=== PATIENT | female | born 1935 | race Caucasian/White ===

== ENCOUNTER → 2016-04-22 | Outpatient (CLI) | payer MEDICARE, BC ==
--- NOTE | 2016-04-22 15:35 | US ---
EXAMINATION TYPE: US carotid duplex BILAT DATE OF EXAM: 04/22/2016 2:21 PM COMPARISON: Prior carotid Doppler duplex 14 March 2015 CLINICAL HISTORY: HTN I27.2, h/o stroke. Stenosis, I65.29 EXAM MEASUREMENTS: RIGHT: Peak Systolic Velocity (PSV) cm/sec ----- Right CCA: 55.0 ----- Right ICA: 121.6 ----- Right ECA: 123.8 ICA/CCA ratio: 2.2 RIGHT: End Diastole cm/sec ----- Right CCA: 7.3 ----- Right ICA: 27.1 ----- Right ECA: 7.3 LEFT: Peak Systolic Velocity (PSV) cm/sec ----- Left CCA: 47.5 ----- Left ICA: 115.0 ----- Left ECA: 88.6 ICA/CCA ratio: 2.4 LEFT: End Diastole cm/sec ----- Left CCA: 11.3 ----- Left ICA: 27.1 ----- Left ECA: 88.6 VERTEBRALS (direction of flow): Right Vertebral: Antegrade Left Vertebral: Antegrade Bilateral heterogeneous plaque, increased velocities noted bilaterally within dist ICA, may be due to tortuous vessels Grayscale, color Doppler, spectral Doppler imaging performed of the carotid arteries., Carotid, carot id bulbs shows extensive atheromatous change. IMPRESSION: No hemodynamic significant stenosis of the proximal internal carotid arteries bilaterall y by Doppler criteria, and indirect measurement of carotid stenosis. Carotid CTA could be performed f or better evaluation, there is extensive atheromatous plaque as described. Cardiac arrhythmia noted incidentally.
--- NOTE | 2016-04-23 10:31 | ECHOF ---
Referral Reason:I27.2 pulm htn, I65.29 stenosis MEASUREMENTS -------- HEIGHT: 157.5 cm WEIGHT: 45.4 kg BP: RVIDd: 2.6 cm (< 3.3) IVSd: 1.0 cm (0.6 - 1.1) LVIDd: 3.3 cm (3.9 - 5.3) LVPWd: 1.5 cm (0.6 - 1.1) IVSs: 1.7 cm LVIDs: 2.1 cm LVPWs: 1.5 cm LA Diam: 4.4 cm (2.7 - 3.8) LAESV Index (A-L): 55.71 ml/m MV EXCURSION: 18.547 mm (> 18.000) MV EF SLOPE: 110 mm/s (70 - 150) EPSS: 0.2 cm MV E Mark: 0.88 m/s MV DecT: 123 ms MV A Mark: 0.34 m/s MV E/A Ratio: 2.62 AV maxP.34 mmHg AV meanP.98 mmHg RAP: 5.00 mmHg RVSP: 46.47 mmHg FINDINGS -------- Sinus rhythm. This was a technically good study. There is mild concentric left ventricular hypertrophy. Overall left ventricular systolic function is low-normal with, an EF between 50 - 55 %. The right ventricle is normal in size. LA is severely dilated >40 ml/m2 The right atrial size is normal. Moderate to severe aortic stenosis with peak/mean pressure gradient of 27.34mmHg / 13.98mmHg, the aortic valve area by continuity equation is 0.8cm. Mild mitral annular calcification present. Moderate mitral regurgitation is present. Moderate tricuspid regurgitation present. There is moderate pulmonary hypertension. The right ventricular systolic pressure, as measured by Doppler, is 46.47mmHg. There is no pulmonic regurgitation present. The aortic root size is normal. There is no pericardial effusion. CONCLUSIONS -------- 1. There is mild concentric left ventricular hypertrophy. 2. Overall left ventricular systolic function is low-normal with, an EF between 50 - 55 %. 3. LA is severely dilated >40 ml/m2 4. Moderate to severe aortic stenosis with peak/mean pressure gradient of 27.34mmHg / 13.98mmHg, the aortic valve area by continuity equation is 0.8cm. 5. Mild mitral annular calcification present. 6. Moderate mitral regurgitation is present. 7. Moderate tricuspid regurgitation present. 8. There is moderate pulmonary hypertension. 9. The right ventricular systolic pressure, as measured by Doppler, is 46.47mmHg. MICROCOMPUTER TECHNICIAN: Sadaf Connolly RDCS
== END | disposition home or self-care (01) ==
LOC: RADUSMAIN 13:50
PROVIDERS: ATTEND Internal Medicine
DX: I65.29 Occlusion and stenosis of unspecified carotid artery (principal); I27.2 Other secondary pulmonary hypertension
CPT/HCPCS: 93306; 93880

== ENCOUNTER → 2016-05-15 | Outpatient (CLI) | payer MEDICARE, BC ==
[2016-05-15 09:54] LABS: CH 32.9; CHCM 32.8; HCT 45.5 % (34.0-46.0); HDW 2.31; HGB 14.8 gm/dL (11.4-16.0); MCH 32.7 pg (25.0-35.0); MCHC 32.4 g/dL (31.0-37.0); MCV 100.8 fL (80.0-100.0); Mean Platelet Volume 7.7; RBC 4.52 m/uL (3.80-5.40); WBC 10.7 k/uL (3.8-10.6)
[2016-05-15 10:33] LABS: ALT 28 U/L (9-52); AST 47 U/L (14-36); Alkaline Phosphatase 72 U/L (38-126); Anion Gap 14 mmol/L; Blood Urea Nitrogen 16 mg/dL (7-17); Carbon Dioxide 27 mmol/L (22-30); Chloride 92 mmol/L (98-107); Glucose 114 mg/dL (74-99); Non-African American GFR(MDRD) >60 (>60 ml/min/1.73 sqM); Potassium 4.1 mmol/L (3.5-5.1); Sodium 133 mmol/L (137-145); Total Protein 7.7 g/dL (6.3-8.2)
== END | disposition home or self-care (01) ==
LOC: LABWHC1 09:16
PROVIDERS: ATTEND Internal Medicine Interventional Cardiology
DX: D35.00 Benign neoplasm of unspecified adrenal gland (principal)
CPT/HCPCS: 36415; 80053; 83880; 85027

== ENCOUNTER 2016-07-08 05:45 | Day surgery (SDC) | payer MEDICARE, BC ==
[2016-07-07 10:01] VITALS: BMI 19.2
[2016-07-08] MEDS ORDERED: ASPIRIN 325 MG TAB PO ONE (06:00)
[2016-07-08] MEDS ORDERED: ATORVASTATIN 80 MG TAB PO ONE (06:00)
[2016-07-08] MEDS ORDERED: SODIUM CHLORIDE 0.9% 1,000 ML in EMPTY BAG 1 BAG IV ONE (06:00)
[2016-07-08 06:51] LABS: Anion Gap 11 mmol/L; Blood Urea Nitrogen 14 mg/dL (7-17); Calcium 9.9 mg/dL (8.4-10.2); Carbon Dioxide 26 mmol/L (22-30); Chloride 97 mmol/L (98-107); Glucose 92 mg/dL (74-99); Non-African American GFR(MDRD) >60 (>60 ml/min/1.73 sqM); Potassium 4.1 mmol/L (3.5-5.1); Sodium 134 mmol/L (137-145)
[2016-07-08 06:55] LABS: Basophils # (A) 0.1 k/uL (0-0.2); Basophils % (A) 1 %; CH 32.4; Eosinophils # (A) 0.1 k/uL (0-0.7); Eosinophils % (A) 1 %; HCT 40.2 % (34.0-46.0); HDW 2.49; HGB 13.5 gm/dL (11.4-16.0); Luc # (Auto) 0.14; Luc % (Auto) 2; Lymphocytes % (A) 12 %; MCH 32.2 pg (25.0-35.0); MCHC 33.6 g/dL (31.0-37.0); Monocytes # (A) 0.6 k/uL (0-1.0); Monocytes % (A) 7 %; Neutrophils # (A) 6.4 k/uL (1.3-7.7); Neutrophils % (A) 77 %; RBC 4.19 m/uL (3.80-5.40); RDW 13.7 % (11.5-15.5); WBC 8.3 k/uL (3.8-10.6); WBC (Perox) 8.61
[2016-07-08] MEDS ORDERED: fentaNYL (PF) 50 MCG/ML 2 ML AMP ONE (07:05)
[2016-07-08] MEDS ORDERED: MIDAZOLAM 2 MG/2 ML VIAL ONE (07:08)
[2016-07-08] MEDS: BENZOCAINE SPRAY 100 APPLIC/CAN MUCOUS MEM ONE ×2 (07:20→07:26)
[2016-07-08] MEDS: MIDAZOLAM 2 MG/2 ML VIAL IV ONE ×2 (07:24→07:26)
[2016-07-08] MEDS ORDERED: fentaNYL (PF) 50 MCG/ML 2 ML AMP IV ONE (07:24)
[2016-07-08] MEDS ORDERED: LIDOCAINE 2% INJ 20 MG/ML (20 ML MDV) ONE (07:25)
[2016-07-08] MEDS ORDERED: VERAPAMIL 2.5 MG/ML 2 ML AMP ONE (07:26)
[2016-07-08 07:33] LABS: MCV 95.7 fL (80.0-100.0)
[2016-07-08] MEDS ORDERED: LIDOCAINE 2% INJ 20 MG/ML SQ ONE ×2 (08:14)
[2016-07-08 08:54] LABS: Site PA
[2016-07-08 08:55] LABS: Site RA
[2016-07-08 08:55] LABS: Site FA
[2016-07-08] MEDS ORDERED: IOHEXOL 350 MG/ML 100 ML BOTTLE INJ ONE (08:56)
[2016-07-08] MEDS ORDERED: RX INFO: IV CONTRAST WAS GIVEN 1 EACH MISC MISCELLANE PRN (08:57)
[2016-07-08] MEDS ORDERED: FLUTICASONE 50MCG/SPRAY NASAL 16GM EA NOSTRIL PRN (08:58)
[2016-07-08] MEDS ORDERED: SODIUM CHLORIDE 0.9% 1,000 ML IV SCH (09:00)
--- NOTE | 2016-07-08 10:17 | ECHOT ---
DATE OF SERVICE: CLINICAL INFORMATION: Evaluation of aortic valve. PROCEDURE: After explaining the procedure to patient as well as risks and complications, blood pressure, heart rate and O2 sats was monitored. She received 2 mg of Versed and 50 mcg intravenous fentanyl. After obtaining conscious moderate sedated state, The probe was introduced into the esophagus. Images were obtained. Following that, the probe was removed. There were no immediate complications. FINDINGS: Left atrial size is mildly dilated. Left atrial appendage is normal. The aortic valve is a tricuspid valve. It is severely calcified with reduced opening. By planimetry the valve area is ranging between 0.8 and 1 cm sq. Mitral annular calcification was noted. The left ventricular size and systolic function was normal. Tricuspid valve is normal. Descending thoracic aorta revealed mild atherosclerotic changes. Small pericardial effusion was noted. Contrast bubble study revealed no evidence of shunting across the interatrial septum. Doppler pulse wave obtained. Revealed moderate mitral and tricuspid regurgitation. There was inability to obtain accurate grading across the aortic valve. There was no shunting by color Doppler study. CONCLUSION: 1. Mildly dilated left atrium with normal appearance of left atrial appendage. 2. Normal left ventricular size and systolic function. 3. Severely calcified aortic valve with reduction of the opening and by planimetry measuring between 0.8 and 1 cm. 4. Mild to moderate mitral with moderate tricuspid regurgitation. 5. Mild atherosclerotic changes of the descending thoracic aorta. 6. Small pericardial effusion. 7. No evidence of significant shunting across the interatrial septum. MTDD
[2016-07-08] MEDS ORDERED: VITAMIN E (DL,TOCOPHERYL ACET) 400 UNIT CAP PO SCH (13:30)
[2016-07-08] MEDS ORDERED: CALCIUM CARB-VIT D 500MG-200UN 1 EACH TAB PO SCH (13:30)
[2016-07-08] MEDS ORDERED: ASCORBIC ACID 500 MG TAB PO SCH (15:00)
--- NOTE | 2016-07-08 18:10 | CC ---
DATE OF SERVICE: Mrs. Friedman is an 81-year-old female with known history of hypertension, chronic atrial fibrillation who presented with progressive dyspnea on exertion and evidence of progressive aortic valve stenosis with severe aortic stenosis. In view of that, recommendation made regarding cardiac catheterization. The procedure as well as the risks and complications were discussed with the patient who is in full understanding and agreement. PROCEDURE: Patient was brought to the soap slabber in fasting semisedated state achieving moderate conscious, sedated state with fentanyl and Benadryl. Using Xylocaine anesthesia and Seldinger technique, a 6 Chinese sheath was introduced in the left femoral vein and a 6 Chinese sheath in the left femoral artery. Right heart catheterization performed using Donie-Barbi catheter. Multiple pressure samples were obtained. Cardiac output by thermodilution was calculated. Following that, selective right and left coronary angiography was performed with 6 Chinese 4 bend right and left Earline. Multiple views of the right coronary artery including hemiaxial views were obtained. Following that, catheter and sheaths were removed. Hemostasis was obtained with compression of the left groin. There were no immediate complications. Patient is returned to her room in stable condition. FINDINGS: HEMODYNAMICS: Cardiac output by Bg of 2.6 liters per minute and by thermodilution 2.4 liters per minute. The right atrial saturation of 65, pulmonary saturations 64. Femoral artery saturation of 95. Pulmonary artery systolic pressure of 32 with diastolic of 13 and a mean of 20 mmHg. Right ventricular systolic pressure of 30 with an end diastolic of 40 mmHg. Right atrial V wave of 6 with a mean of 5 mm mercury. FLUOROSCOPY: There was severe calcifications involving all the coronary arteries as well as the aortic valve and the femoral artery, quite heavy. LEFT MAIN: This is a large-size vessel heavily calcified bifurcating into the left circumflex artery, left anterior descending coronary artery, left main coronary artery distally has 40 to 50% plaque. The rest of the vessel has no high-grade stenosis. LEFT ANTERIOR DESCENDING CORONARY ARTERY: This is a large-size vessel reaching toward the apex, tapers down the distal third giving rise to diagonal branch in the mid segment of moderate caliber. The left anterior descending artery is heavily calcified in the proximal segment with the area of stenosis up to 35% to 40%. Distally, has an area of 70% stenosis. The rest of the vessel has no high-grade stenosis. LEFT CIRCUMFLEX: This is a nondominant vessel, giving rise to a large obtuse marginal branch. The left circumflex is heavily calcified. The takeoff has an eccentric 70% to 80% stenosis. The obtuse marginal branch has diffuse intimal disease with area of stenosis up to 60 to 70%. The rest of the vessel has no high-grade stenosis. RIGHT CORONARY ARTERY: This is a large dominant vessel, bifurcating distally into the PDA and posterolateral segment and branches. The right coronary artery is heavily calcified in the proximal and mid segment, has area of stenosis up to 60% throughout its course without any high-grade stenosis. The femoral artery angiogram showed severe obstructive disease at the site of the insertion of the sheath with severe diffuse disease proximal and distal to it. CONCLUSION: 1. Heavily calcified coronary arteries, aortic valve and peripheral vasculature. 2. Moderate to significant distal left main disease with significant disease in the proximal left circumflex. 3. Moderate disease in the proximal left anterior descending coronary artery and diffuse disease of moderate degree in the right coronary artery. RECOMMENDATION: In view of the findings and anatomy, I have recommended to continue medical therapy at this time. The patient is a very high risk for any intervention. Those findings will be further evaluated and discussion with the patient will be made regarding the option including maximizing medical therapy and continued conservative treatment versus considering high-risk angioplasty and TAVR. Depending on her progress, further recommendation will be made.
--- NOTE | 2016-07-08 18:12 | LTR ---
July 08, 2016 RE: Jose Friedman Dear Dr. Lynch: I had the pleasure of performing cardiac catheterization on Mrs. Friedman at [facility] on the july and a full copy of procedure note will be forwarded to you. In brief, she was found to have severe heavily calcified coronaries as well as peripheral vasculature and aortic valve with significant obstructive disease involving the left circumflex and moderate disease in the LAD and the right coronary artery and her transesophageal echocardiogram was consistent with severe aortic stenosis. Mrs. Friedman is a very high risk for any intervention at this time and that will be further evaluated with the option of continued medical therapy understanding the guarded prognosis versus proceeding with high risk intervention including angioplasty and TAVR. I will keep you updated on her progress. Thank you again for allowing me to participate in her care. Please feel free to call for any questions. Sincerely, CHRISTOPHER RUFFIN MD
[2016-07-08] MEDS: amLODIPine 10 MG TAB PO SCH (18:56)
[2016-07-08] MEDS: MELOXICAM 7.5 MG TAB PO SCH ×2 (18:57→19:55)
[2016-07-08] MEDS: RALOXIFENE 60 MG TAB PO SCH (18:57)
[2016-07-08] MEDS: ATENOLOL 25 MG TAB PO SCH (18:57)
[2016-07-08] MEDS: FERROUS SULFATE 325 MG TAB PO SCH (18:57)
[2016-07-09 07:19] LABS: Anion Gap 8 mmol/L; Blood Urea Nitrogen 14 mg/dL (7-17); Calcium 8.7 mg/dL (8.4-10.2); Carbon Dioxide 27 mmol/L (22-30); Chloride 96 mmol/L (98-107); Glucose 75 mg/dL (74-99); Non-African American GFR(MDRD) >60 (>60 ml/min/1.73 sqM); Potassium 4.6 mmol/L (3.5-5.1); Sodium 131 mmol/L (137-145)
[2016-07-09 07:50] VITALS: BP 137/62; PULSE 71; RESP 18; TEMP 97.9
[2016-07-09] MEDS: MELOXICAM 7.5 MG TAB PO SCH (08:11)
[2016-07-09] MEDS: ATENOLOL 25 MG TAB PO SCH (08:11)
[2016-07-09] MEDS: amLODIPine 10 MG TAB PO SCH (08:11)
[2016-07-09] MEDS: RALOXIFENE 60 MG TAB PO SCH (08:11)
[2016-07-09] MEDS: FERROUS SULFATE 325 MG TAB PO SCH (08:12)
--- NOTE | 2016-07-09 10:05 | PN ---
Mrs. Friedman is an 81-year-old female with a history of chronic atrial fibrillation, history of aortic stenosis who presented with progressive dyspnea, was found to have progression of her aortic stenosis on her echocardiogram, underwent transesophageal echocardiogram and cardiac catheterization, was found to have severe coronary artery disease as well as severe aortic stenosis with heavily calcified coronary arteries. She is doing well this morning. She is denying any chest pain. No dizziness. No palpitation. No cough or fever. She continues to be on atenolol 25 mg daily, iron, Evista, amlodipine 10 mg daily. PHYSICAL EXAMINATION: Blood pressure 137/60 with a heart rate in 60s. LUNGS: Clear. HEART: Irregularly irregular. S1, S2, no S3, with systolic murmur, 3/6, late peaking. No diastolic murmur. No rub. ABDOMEN: Soft, nontender, positive bowel sounds. No organomegaly. EXTREMITIES: No edema. LEFT GROIN: No hematoma. Lab data revealed BUN and creatinine of 14 and 0.65. Potassium 4.6. IMPRESSION: 1. Severe aortic stenosis and severe calcified coronary arteries. 2. Chronic atrial fibrillation. 3. Hypertension. RECOMMENDATION: Patient will be discharged home today and followed as an outpatient and further recommendation will be made At that time. She will resume her routine treatment with the anticoagulation.
== END 2016-07-09 11:25 | disposition home or self-care (01) ==
LOC: CATHCVL 05:45 → 3OBS 13:06 → CATHCVL 07-09 11:25
PROVIDERS: ATTEND Internal Medicine Interventional Cardiology
DX: I25.10 Atherosclerotic heart disease of native coronary artery without angina pectoris (principal); I48.2 Chronic atrial fibrillation; I35.0 Nonrheumatic aortic (valve) stenosis; I10 Essential (primary) hypertension; I36.1 Nonrheumatic tricuspid (valve) insufficiency; I25.84 Coronary atherosclerosis due to calcified coronary lesion; J44.9 Chronic obstructive pulmonary disease, unspecified; Z86.73 Personal history of transient ischemic attack (TIA), and cerebral infarction without residual deficits; Z87.891 Personal history of nicotine dependence; Z82.49 Family history of ischemic heart disease and other diseases of the circulatory system; Z79.01 Long term (current) use of anticoagulants; Z79.51 Long term (current) use of inhaled steroids; Z79.899 Other long term (current) drug therapy; Z88.8 Allergy status to other drugs, medicaments and biological substances
CPT/HCPCS: 93312; 93320; 93325; 99152; 93456; 80048 ×2; 85018; 82810; 85025; C1769 ×2; C1894 ×2; J2001; J2250; Q9967; J3010

== ENCOUNTER 2016-08-03 16:42 | Inpatient (IN) | payer MEDICARE, BC ==
[2016-08-03] MEDS ORDERED: RX INFO: IV CONTRAST WAS GIVEN 1 EACH MISC MISCELLANE PRN ×2 (16:53→17:18)
[2016-08-03] MEDS ORDERED: PIPERACILLIN-TAZOBACTAM 3.375 GM in DEXTROSE/WATER 1 50ML.BAG IVPB STA (16:53)
[2016-08-03] MEDS ORDERED: IPRATROPIUM-ALBUTEROL 3 ML NEB INHALATION STA (16:53)
[2016-08-03] MEDS ORDERED: SODIUM CHLORIDE 0.9% 1,000 ML IV STA (16:53)
--- NOTE | 2016-08-03 17:17 | ED ---
SOB HPI - General Chief Complaint: Shortness of Breath Stated Complaint: SOB Time Seen by Provider: 08/03/16 16:50 Source: patient Mode of arrival: wheelchair Limitations: no limitations - History of Present Illness Initial Comments: This 81-year-old white female presents with daughter with the complaint of some difficulty in breathing. This apparently started approximately 3 days ago. She apparently was coughing quite a bit after drinking some tea and that she might have choked on the TV. She denies any chest pains or fevers. The cough has been nonproductive. The daughter also relates 12 pound weight loss in the past several months. She followed up with her shipyard painter today and had an x- ray done in the office which did show an abnormality in the right lower lobe. The case is discussed with Dr. Lynch from pulmonology and he is worried about the possibility of aspiration pneumonia versus a mass. He would like patient to have a computed tomography scan of the thorax and to be admitted to the hospital and placed on IV Zosyn. The patient has had a significant decrease in appetite as well. No other complaints or modifying factors. - Related Data Home Medications Medication Instructions Recorded Confirmed Atenolol 25 mg PO DAILY 09/04/13 08/03/16 Fluticasone Propionate [Flonase] 1 spray EA NOSTRIL BID PRN 09/04/13 08/03/16 Nabumetone [Relafen] 750 mg PO BID 09/04/13 08/03/16 Raloxifene [Evista] 60 mg PO DAILY 09/04/13 08/03/16 amLODIPine BESYLATE [Norvasc] 10 mg PO DAILY 09/04/13 08/03/16 Atorvastatin [Lipitor] 20 mg PO DAILY 08/03/16 08/03/16 Fluocinolone Acetonide Oil 5 drops BOTH EARS BID PRN 08/03/16 08/03/16 [Fluocinolone Acetonide Oil (Otic)] Rivaroxaban [Xarelto] 15 mg PO W/SUPPER 08/03/16 08/03/16 Travoprost [Travatan Z 0.004%] 1 drop RIGHT EYE HS 08/03/16 08/03/16 Allergies Allergy/AdvReac Type Severity Reaction Status Date / Time diazepam [From Valium] AdvReac Hallucinati Verified 08/03/16 17:02 ons Review of Systems ROS Statement: Those systems with pertinent positive or pertinent negative responses have been documented in the HPI. ROS Other: All systems not noted in ROS Statement are negative. Past Medical History Past Medical History: Atrial Fibrillation, Cancer, COPD, CVA/TIA, Hypertension, Osteoarthritis (OA) Additional Past Medical History / Comment(s): DDD, SKIN CANCER History of Any Multi-Drug Resistant Organisms: None Reported Past Surgical History: Back Surgery, Joint Replacement, Orthopedic Surgery Additional Past Surgical History / Comment(s): CANCER SPOTS REMOVED FROM FACE, , TOE SPURS, BILAT CATARACTS, RT ANTONIO X 3, BILAT SHOULDER SX. COLONOSCOPY Past Anesthesia/Blood Transfusion Reactions: No Reported Reaction Past Psychological History: No Psychological Hx Reported Smoking Status: Former smoker Past Alcohol Use History: None Reported Additional Past Alcohol Use History / Comment(s): QUIT SMOKING 06/20/1997 Past Drug Use History: None Reported - Past Family History Sister(s) Family Medical History: Cancer General Exam - General Exam Comments Initial Comments: GENERAL: The patient is malnourished and cachectic. VITAL SIGNS: Heart rate, blood pressure, respiratory rate reviewed as recorded in nurse's notes. EYES: Pupils are round and reactive. Extraocular movements are intact. No conjunctival / lid redness or swelling. ENT: No external evidence of injury, swelling, or ecchymosis. Airway is patent. Throat is clear. NECK: Nontender. No swelling or evidence of injury. No subcutaneous emphysema. Trachea is midline. No thyroid mass. HEART: Regular rate and rhythm. Good peripheral pulses. LUNGS/CHEST: Breath sounds clear and equal bilaterally. No rales, rhonchi, or wheezes. No ecchymosis, subcutaneous emphysema, or tenderness. ABDOMEN: Abdomen soft without tenderness. No palpable masses or organomegaly. No peritoneal signs. No abdominal wall swelling or ecchymosis. EXTREMITIES: There is swelling and mild tenderness to the right leg which is chronic. Normal muscle tone and function. No thoracolumbar tenderness. NEUROLOGIC: Sensation is grossly intact. Cranial nerve exam reveals face is symmetrical, tongue is midline, speech is clear. SKIN: No abrasions or ecchymosis is noted. No induration or masses noted. PSYCHIATRIC: Alert and oriented. Appropriate behavior and judgment. Limitations: no limitations Course Vital Signs 05/01/17 05/01/17 05/01/17 16:57 17:08 17:10 Temperature 96.9 F L Pulse Rate 81 92 85 Respiratory 18 18 Rate Blood Pressure 147/72 136/71 O2 Sat by Pulse 95 97 Oximetry 08/03/16 08/03/16 08/03/16 17:23 17:59 19:05 Temperature Pulse Rate 83 86 85 Respiratory 18 18 Rate Blood Pressure 157/94 113/72 O2 Sat by Pulse 95 95 Oximetry Medical Decision Making - Medical Decision Making The patient is seen and examined. All diagnostics are reviewed. The EKG shows atrial fibrillation with a heart rate of 86. She barely does have a history of atrial fibrillation as well. The EKG also shows evidence of left axis deviation. There is no acute ST-T wave changes noted. There may be some slight flattening of the inferior leads. The QRS duration is 100, and the QTc interval is 471. The laboratory overall is fairly unremarkable except for an elevated BNP. The computed tomography scan of the thorax does not show any evidence of pulmonary embolism but does show evidence of pneumonia as well as bilateral pleural effusions much worse on the right. There is some mediastinal edema noted. The patient is doing well on recheck. Is felt that she would require admission. There certainly are olivarez possibility that this could be related to aspiration pneumonia. The case was discussed with Dr. Garcia and he is agreeable with admission. - Lab Data Result diagrams: 08/03/16 16:55 08/03/16 16:55 Lab Results 08/03/16 08/03/16 08/03/16 Range/Units 16:55 16:55 16:55 WBC 10.5 (3.8-10.6) k/uL RBC 4.06 (3.80-5.40) m/uL Hgb 13.0 (11.4-16.0) gm/dL Hct 39.7 (34.0-46.0) % MCV 97.8 (80.0-100.0) fL MCH 32.2 (25.0-35.0) pg MCHC 32.9 (31.0-37.0) g/dL RDW 14.5 (11.5-15.5) % Plt Count 316 (150-450) k/uL Neutrophils % 88 % Lymphocytes % 5 % Monocytes % 5 % Eosinophils % 1 % Basophils % 0 % Neutrophils # 9.2 H (1.3-7.7) k/uL Lymphocytes # 0.5 L (1.0-4.8) k/uL Monocytes # 0.5 (0-1.0) k/uL Eosinophils # 0.1 (0-0.7) k/uL Basophils # 0.0 (0-0.2) k/uL PT (9.0-12.0) sec INR (<1.1) APTT (22.0-30.0) sec Sodium 136 L (137-145) mmol/L Potassium 3.6 (3.5-5.1) mmol/L Chloride 103 (98-107) mmol/L Carbon Dioxide 24 (22-30) mmol/L Anion Gap 9 mmol/L BUN 24 H (7-17) mg/dL Creatinine 0.61 (0.52-1.04) mg/dL Est GFR (MDRD) Af Amer >60 (>60 ml/min/1.73 sqM) Est GFR (MDRD) Non-Af >60 (>60 ml/min/1.73 sqM) Glucose 99 (74-99) mg/dL Calcium 8.2 L (8.4-10.2) mg/dL Total Bilirubin 0.9 (0.2-1.3) mg/dL AST 61 H (14-36) U/L ALT 29 (9-52) U/L Alkaline Phosphatase 58 (38-126) U/L Total Creatine Kinase 117 (30-135) U/L CK-MB (CK-2) 6.0 H* (0.0-2.4) ng/mL CK-MB (CK-2) Rel Index 5.1 Troponin I <0.012 (0.000-0.034) ng/mL NT-Pro-B Natriuret Pep pg/mL Total Protein 6.4 (6.3-8.2) g/dL Albumin 3.2 L (3.5-5.0) g/dL 08/03/16 08/03/16 Range/Units 16:55 16:55 WBC (3.8-10.6) k/uL RBC (3.80-5.40) m/uL Hgb (11.4-16.0) gm/dL Hct (34.0-46.0) % MCV (80.0-100.0) fL MCH (25.0-35.0) pg MCHC (31.0-37.0) g/dL RDW (11.5-15.5) % Plt Count (150-450) k/uL Neutrophils % % Lymphocytes % % Monocytes % % Eosinophils % % Basophils % % Neutrophils # (1.3-7.7) k/uL Lymphocytes # (1.0-4.8) k/uL Monocytes # (0-1.0) k/uL Eosinophils # (0-0.7) k/uL Basophils # (0-0.2) k/uL PT 13.0 H (9.0-12.0) sec INR 1.3 (<1.1) APTT 25.2 (22.0-30.0) sec Sodium (137-145) mmol/L Potassium (3.5-5.1) mmol/L Chloride (98-107) mmol/L Carbon Dioxide (22-30) mmol/L Anion Gap mmol/L BUN (7-17) mg/dL Creatinine (0.52-1.04) mg/dL Est GFR (MDRD) Af Amer (>60 ml/min/1.73 sqM) Est GFR (MDRD) Non-Af (>60 ml/min/1.73 sqM) Glucose (74-99) mg/dL Calcium (8.4-10.2) mg/dL Total Bilirubin (0.2-1.3) mg/dL AST (14-36) U/L ALT (9-52) U/L Alkaline Phosphatase (38-126) U/L Total Creatine Kinase (30-135) U/L CK-MB (CK-2) (0.0-2.4) ng/mL CK-MB (CK-2) Rel Index Troponin I (0.000-0.034) ng/mL NT-Pro-B Natriuret Pep 2530 pg/mL Total Protein (6.3-8.2) g/dL Albumin (3.5-5.0) g/dL Disposition Clinical Impression: Aspiration pneumonia, Dyspnea, Weight loss, Pleural effusion, bilateral Disposition: ADMITTED IP TO THIS [facility] Condition: Fair Time of Disposition: 19:17 Decision Date: 08/03/16 Decision Time: 19:17
[2016-08-03 17:20] LABS: INR 1.3 (<1.1)
[2016-08-03 17:21] LABS: Partial Thromboplastin Time 25.2 sec (22.0-30.0)
[2016-08-03 17:24] LABS: Basophils % (A) 0 %; CH 32.9; CHCM 33.9; Eosinophils # (A) 0.1 k/uL (0-0.7); Eosinophils % (A) 1 %; HCT 39.7 % (34.0-46.0); HDW 2.59; Luc # (Auto) 0.12; Luc % (Auto) 1; Lymphocytes # (A) 0.5 k/uL (1.0-4.8); Lymphocytes % (A) 5 %; MCH 32.2 pg (25.0-35.0); MCHC 32.9 g/dL (31.0-37.0); MCV 97.8 fL (80.0-100.0); Mean Platelet Volume 7.9; Monocytes # (A) 0.5 k/uL (0-1.0); Monocytes % (A) 5 %; Neutrophils # (A) 9.2 k/uL (1.3-7.7); Neutrophils % (A) 88 %; RBC 4.06 m/uL (3.80-5.40); RDW 14.5 % (11.5-15.5); WBC 10.5 k/uL (3.8-10.6); WBC (Perox) 10.38
[2016-08-03 17:25] LABS: ALT 29 U/L (9-52); AST 61 U/L (14-36); Alkaline Phosphatase 58 U/L (38-126); Anion Gap 9 mmol/L; Blood Urea Nitrogen 24 mg/dL (7-17); Calcium 8.2 mg/dL (8.4-10.2); Carbon Dioxide 24 mmol/L (22-30); Chloride 103 mmol/L (98-107); Glucose 99 mg/dL (74-99); Non-African American GFR(MDRD) >60 (>60 ml/min/1.73 sqM); Potassium 3.6 mmol/L (3.5-5.1); Sodium 136 mmol/L (137-145); Total Bilirubin 0.9 mg/dL (0.2-1.3); Total Protein 6.4 g/dL (6.3-8.2)
[2016-08-03 17:41] LABS: Creatine Kinase 117 U/L (30-135)
[2016-08-03 17:53] LABS: Troponin I <0.012 ng/mL (0.000-0.034)
--- NOTE | 2016-08-03 18:21 | CT ---
EXAMINATION TYPE: CT angio chest DATE OF EXAM: 08/03/2016 6:01 PM COMPARISON: NONE HISTORY: Shortness of breath. Post Op heart cath [address] DLP: 167.9 mGycm Automated exposure control for dose reduction was used. CONTRAST: CTA scan of the thorax is performed with IV Contrast, patient injected with 100 mL of Omnipaque 350, pulmonary embolism protocol. . FINDINGS: There is a prominent right pleural effusion which appears freely flowing and occupies approximately 2 5% of the right hemithorax. There is a scant left pleural effusion. There is dense consolidation in the right midlung zone, predominantly involving the lateral segment r ight middle lobe. The lungs are predominantly clear otherwise. The pulmonary arterial tree is well-opacified and without evidence for pulmonary emboli. There is obl iteration of the fat planes throughout the mediastinum, consistent with edematous change which may be related to the recent surgical procedure if clinically corroborated. There are no abnormal gas colle ctions within the mediastinum. There is mild thickening of the pericardium. There is mild/moderate cardiomegaly with left atrial enl argement. 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 The aorta is otherwise unremarkable. Visualized subdiaphragmatic structures are not well-visualized due to a paucity of gas and a lack of intravenous or oral contrast opacification of structures. Skeletal structures are unremarkable other than advanced degenerative spine changes. IMPRESSION: 1. NEGATIVE FOR PULMONARY EMBOLISM. 2. RIGHT LUNG CONSOLIDATION COMPATIBLE WITH PNEUMONIA. 3. LARGE RIGHT PLEURAL EFFUSION. 4. EDEMATOUS CHANGE THROUGHOUT THE MEDIASTINUM DETAILED.
[2016-08-03] MEDS ORDERED: PNEUMONIA PROTOCOL UTILIZED 1 EACH MISC PO PRN (19:24)
[2016-08-03] MEDS ORDERED: NON-FORMULARY DRUG (Fluocinolone Acetonide Oil [Fluocinolone Acetonide Oil (Otic)] 5 DROPS BOTH EARS PRN (19:26)
[2016-08-03] MEDS ORDERED: FLUTICASONE 50MCG/SPRAY NASAL 16GM EA NOSTRIL PRN (19:26)
[2016-08-03] MEDS: PIPERACILLIN-TAZOBACTAM 3.375 GM in DEXTROSE/WATER 1 50ML.BAG IVPB SCH (23:19)
[2016-08-04] MEDS: LATANOPROST 0.005% OPHTH DROPS 2.5 ML BTL RIGHT EYE SCH ×2 (00:36→22:08)
[2016-08-04] MEDS: MELOXICAM 7.5 MG TAB PO SCH ×3 (00:36→22:07)
--- NOTE | 2016-08-04 08:35 | US ---
EXAMINATION TYPE: US chest DATE OF EXAM: 08/04/2016 8:19 AM COMPARISON: CT chest first of August 2016 CLINICAL HISTORY: rt pleural effusion. EXAM MEASUREMENTS: Right Pleural Effusion fluid pocket: 9.0 cm Right skin to fluid thickness: 2.0 cm Right side marked for possible thoracentesis outside the dept. IMPRESSIONS: right pleural effusion
[2016-08-04] MEDS: PIPERACILLIN-TAZOBACTAM 3.375 GM in DEXTROSE/WATER 1 50ML.BAG IVPB SCH ×2 (09:10→17:58)
[2016-08-04] MEDS: amLODIPine 10 MG TAB PO SCH (09:13)
[2016-08-04] MEDS: RALOXIFENE 60 MG TAB PO SCH (09:13)
[2016-08-04] MEDS: ATORVASTATIN 20 MG TAB PO SCH (09:13)
[2016-08-04] MEDS: ATENOLOL 25 MG TAB PO SCH (09:13)
--- NOTE | 2016-08-04 10:03 | XR ---
EXAMINATION TYPE: XR chest 2V DATE OF EXAM: 08/04/2016 9:43 AM COMPARISON: Prior chest x-ray 17 October 2013 HISTORY: Pneumonia TECHNIQUE: Frontal and lateral views of the chest are obtained. FINDINGS: Patient is rotated. Interstitium is increased. Heart and AP are enlarged due to rotation. There are overlying cardiac leads. No pneumothorax. Patchy basilar density is present, there is blunt ing of the costophrenic angles. Lung volumes are low. Chronic rotator cuff tear changes persist in th e right shoulder.. IMPRESSION: Correlate for pulmonary venous hypertension and interstitial edema, there may be associa luis effusion, atelectasis at the lung bases, correlate to exclude pneumonia. Follow-up is recommended . Findings in the left shoulder as described. Consider dedicated left shoulder exam.
--- NOTE | 2016-08-04 12:00 | HP ---
DATE OF ADMISSION: Patient is a very pleasant 81-year-old female, was seen in Dr. Lynch's clinic with severe shortness of breath and patient was sent in here. Patient was complaining of cough without any sputum production. Patient denied any fever, chills. Patient does not have any leukocytosis. Patient was seen in the ER and CT angio of the chest was obtained. No pulmonary embolism. Unfortunately, I am unable to open the images although as per the report, although it is not mentioned which lobe is involved. Patient has right-sided pneumonia with large pleural effusion for which patient underwent ultrasound and marking for thoracocentesis and patient is feeling better. There is suspicion of aspiration pneumonia because of patient choked on pea and patient appears to have been aspirating her food recently and Speech Therapy will evaluate the patient. Patient has hoarseness of the voice, because of which we are getting ENT to evaluate the patient for possibility of any lesions in the larynx and laryngeal paralysis. Initially the concern was mass in the right lower lobe, which patient does not appear to have and Pulmonology was consulted. ENT will be consulted as well and patient's breathing trouble has improved. Patient denied any chest pain. Patient was complaining of cough with very minimal sputum production. REVIEW OF SYSTEMS: CONSTITUTIONAL: No fever, no malaise, no fatigue. HEENT: No recent visual problems or hearing problems. Denied any sore throat. CARDIOVASCULAR: No chest pain, orthopnea, PND, no palpitations, no syncope. PULMONARY: As described in HPI. GASTROINTESTINAL: No diarrhea, no nausea, no vomiting, no abdominal pain. Normoactive bowel sounds. NEUROLOGICAL: No headaches, no weakness, no numbness. HEMATOLOGICAL: Denies any bleeding or petechiae. GENITOURINARY: Denies any burning micturition, frequency, or urgency. MUSCULOSKELETAL/RHEUMATOLOGICAL: Denies any joint pain, swelling, or any muscle pain. ENDOCRINE: Denies any polyuria or polydipsia. The rest of the 14 point review of systems is negative. HOME MEDICATIONS: 1. Atenolol. 2. Fluticasone. 3. Relafen. 4. Raloxifene. 5. Amlodipine. 6. Atorvastatin. 7. Rivaroxaban that is Xarelto. 8. Travoprost. ALLERGIES: Allergic to DIAZEPAM. Past medical history is significant for atrial fibrillation, COPD, CVA, TIA, hypertension, osteoarthritis, degenerative joint disease, back surgery, joint replacement surgery, orthopedic surgery. SOCIAL HISTORY: Former smoker. Quit smoking in 1997. Denied any alcohol abuse or any drug abuse. FAMILY HISTORY: Sister had some kind of cancer. PHYSICAL EXAMINATION: Temperature 97.9, pulse of 83, respiratory rate of 18, blood pressure is 136/74, saturating at 97% on 2 L of O2 by nasal cannula. RESPIRATORY EXAMINATION: rhonchus breath sounds bilaterally. Patient is very thin-built female. The patient has bronchophony, egophony in the right posterior lung hill with some dullness in the posterior lung hill. GENERAL: The patient is alert and oriented x3, not in any acute distress. Well developed, well nourished. HEENT: Pupils are round and equally reacting to light. EOMI. No scleral icterus. No conjunctival pallor. Normocephalic, atraumatic. No pharyngeal erythema. No thyromegaly. CARDIOVASCULAR: S1 and S2 present. No murmurs, rubs, or gallops. ABDOMEN: Soft, nontender, nondistended, normoactive bowel sounds. No palpable organomegaly. MUSCULOSKELETAL: No joint swelling or deformity. EXTREMITIES: No cyanosis, clubbing, or pedal edema. NEUROLOGICAL: Gross neurological examination did not reveal any focal deficits. SKIN: No rashes. LABORATORY DATA: CBC, CMP, essentially within normal limits and CT angio, ultrasound of the chest as mentioned above. ASSESSMENT AND PLAN: 1. Acute hypoxic respiratory failure secondary to pneumonia, possibly aspiration pneumonia with a possibility of laryngeal paralysis and episodes of aspiration. Speech Therapy will be consulted. Patient was started Zosyn and continue with inhalational treatments. 2. Mild to moderate protein calorie malnutrition. 3. Hypertension. 4. Atrial fibrillation, on Xarelto, presently rate controlled. Will continue with the present medications. 5. History of cerebrovascular accident/transient ischemic attack in the past. 6. Chronic obstructive pulmonary disease with minimal exacerbation. Continue with systemic steroids, inhalational treatments, antibiotics. Pulmonology and ENT will be consulted for possibility of laryngeal paralysis.
[2016-08-04 13:44] LABS: Glucose,Whole Blood 347 mg/dL (75-99)
--- NOTE | 2016-08-04 14:18 | P.CNPUL ---
History of Present Illness Consult date: 08/04/16 Requesting physician: Deangelo Garcia Reason for consult: dyspnea, abnormal CXR/CT Chief complaint: Shortness of breath History of present illness: This is a very pleasant 81-year-old female patient who follows with Dr. Lynch in our office as her primary care provider. She has a history of moderate to severe aortic stenosis aortic valve area of 0.8 cm, multivessel coronary artery disease with most recent cardiac catheterization revealing a 40 % distal left main, 40% proximal LAD, 70% distal LAD, 80% ostial circumflex, 60 % mid RCA. She also has severe peripheral vascular disease. She has chronic atrial fibrillation, pulmonary hypertension, osteoarthritis, osteoporosis, hypertension. She was seen in our office yesterday by Dr. Lynch for steadily deteriorating health. She has also lost approximately 12 pounds. She was also having some shortness of breath and hoarseness. There is concern regarding possible aspiration as well. Her chest x-ray revealed a lobular masslike opacity in the right lower lobe and she was referred to the hospital for further investigation. A computed tomography scan of the chest done in the emergency room with no evidence of pulmonary embolism however there was a right lung consolidation and a large right pleural effusion. Neoplasm remains within the differential. There is no leukocytosis. She is afebrile. No significant cough or congestion. No chills or night sweats. Review of Systems 14 point review of system was conducted. All negative other than as mentioned in the HPI. Past Medical History Past Medical History: Atrial Fibrillation, Cancer, COPD, CVA/TIA, Hypertension, Osteoarthritis (OA) Additional Past Medical History / Comment(s): DDD, SKIN CANCER History of Any Multi-Drug Resistant Organisms: None Reported Past Surgical History: Back Surgery, Joint Replacement, Orthopedic Surgery Additional Past Surgical History / Comment(s): CANCER SPOTS REMOVED FROM FACE, , TOE SPURS, BILAT CATARACTS, RT ANTONIO X 3, BILAT SHOULDER SX. COLONOSCOPY Past Anesthesia/Blood Transfusion Reactions: No Reported Reaction Past Psychological History: No Psychological Hx Reported Smoking Status: Former smoker Past Alcohol Use History: None Reported Additional Past Alcohol Use History / Comment(s): QUIT SMOKING 06/20/1997 Past Drug Use History: None Reported - Past Family History Sister(s) Family Medical History: Cancer Medications and Allergies Home Medications Medication Instructions Recorded Confirmed Type Atenolol 25 mg PO DAILY 09/04/13 08/03/16 History Fluticasone Propionate [Flonase] 1 spray EA NOSTRIL BID PRN 09/04/13 08/03/16 History Nabumetone [Relafen] 750 mg PO BID 09/04/13 08/03/16 History Raloxifene [Evista] 60 mg PO DAILY 09/04/13 08/03/16 History amLODIPine BESYLATE [Norvasc] 10 mg PO DAILY 09/04/13 08/03/16 History Atorvastatin [Lipitor] 20 mg PO DAILY 08/03/16 08/03/16 History Fluocinolone Acetonide Oil 5 drops BOTH EARS BID PRN 08/03/16 08/03/16 History [Fluocinolone Acetonide Oil (Otic)] Rivaroxaban [Xarelto] 15 mg PO W/SUPPER 08/03/16 08/03/16 History Travoprost [Travatan Z 0.004%] 1 drop RIGHT EYE HS 08/03/16 08/03/16 History Allergies Allergy/AdvReac Type Severity Reaction Status Date / Time diazepam [From Valium] AdvReac Hallucinati Verified 08/03/16 17:02 ons Physical Exam Vitals: Vital Signs Temp Pulse Pulse Resp BP BP Pulse Ox 08/04/16 12:28 83 18 08/04/16 07:30 97.9 F 83 18 136/74 97 08/03/16 23:00 97.7 F 77 20 139/64 97 08/03/16 19:50 90 18 128/75 97 Intake and Output 08/03/16 08/04/16 08/04/16 22:59 06:59 14:59 Other: # Voids 1 GENERAL EXAM: Frail, cachectic. Alert, comfortable in no apparent distress. HEAD: Normocephalic. EYES: Normal reaction of pupils, equal size. NOSE: Clear with pink turbinates. THROAT: No erythema or exudates. NECK: No masses, no JVD. CHEST: No chest wall deformity. LUNGS: Equal air entry with crackles in the right posterior base, diminished.. CVS: S1 and S2 normal with an audible mumur, regular rhythm. ABDOMEN: No hepatosplenomegaly, normal bowel sounds, no guarding or rigidity. SPINE: Kyphoscoliosis. SKIN: No rashes Extremities: There is changes of arthritis noted in the joints. No significant edema. No clubbing, no cyanosis. Peripheral pulses are intact. Results - Laboratory Findings CBC and BMP: 08/03/16 16:55 08/03/16 16:55 PT/INR, D-dimer PT 13.0 sec (9.0-12.0) H 08/03/16 16:55 INR 1.3 (<1.1) 08/03/16 16:55 Abnormal lab findings: Abnormal Labs 08/04/16 13:24 POC Glucose (mg/dL) 347 H - Diagnostic Findings Chest x-ray: image reviewed CT scan - chest: image reviewed Assessment and Plan Plan: Impression: #1 Acute hypoxic respiratory failure secondary to large right pleural effusion with consolidation/mass. Malignancy remains in the differential versus possible aspiration pneumonia secondary to dysphagia. #2 Dysphagia with hoarseness of unclear etiology. #3 Weight loss. #4 Multivessel coronary artery disease. #5 Moderate to severe aortic stenosis. #6 Peripheral vascular disease. #7 Pulmonary hypertension secondary to valvular heart disease. #8 Chronic atrial fibrillation maintained on Xarelto. #9 Osteoporosis. #10 Hypertension. Plan: The patient was seen and evaluated by Dr. Lawson. Her chest x-ray, CT scans and labs were reviewed. The plan is for bronchoscopy with biopsy tomorrow with Dr. Lynch. Her Xarelto will be held. We may plan for thoracentesis the following day. We'll continue with her other medications including bronchodilators and antibiotics in the form of Zosyn. The plan was discussed with both the patient and her daughter Romero who are in agreement. We'll continue to follow and make further recommendations based on her clinical status.
--- NOTE | 2016-08-04 14:24 | FL ---
MODIFIED SWALLOW / DEGLUTITION STUDY DATE OF EXAM: 08/04/2016 10:03 AM CLINICAL HISTORY: 81-year-old female with dysphagia. Patient with choking episodes.. TECHNIQUE: Deglutition study is performed utilizing thin liquid barium, honey and nectar thick liqui d barium, barium thick applesauce, and barium coated cracker. COMPARISON: None. FINDINGS: There is grade 1 anterolisthesis at C4-C5 and C5-C6 secondary to spondylotic change. The oral and pharyngeal phases show satisfactory initiation and propagation with all modalities teste d. Normal mastication is seen with solid modalities tested. There is no evidence of penetration or aspiration with any modality tested. Mild to moderate vallecular and piriform sinus residuals are noted which gradually clears with repeat swallows. There is questionable thickening with calcification projecting in the prevertebral space at the C2-C3 level. IMPRESSION: 1. No evidence for penetration or aspiration. 2. Mild to moderate residuals. 3. Questionable thickening and calcification projecting in the prevertebral space at C2-C3. Findings could represent vascular calcifications and retropharyngeal course of the carotid vessels. Recommend contrast enhanced CT neck to exclude an underlying lesion. Refer to speech pathology note for additional findings and impression.
[2016-08-04] MEDS ORDERED: RX INFO: IV CONTRAST WAS GIVEN 1 EACH MISC MISCELLANE PRN (15:46)
--- NOTE | 2016-08-04 16:05 | P.EN ---
I presented today to do a consult that was ordered. This patient wishes for me not to do the consult. She has been seeing Dr. Marty Olivia for many years regarding her ear is and would prefer that he do the consult and not myself. Therefore, we will change the consult to Dr. Marty Olivia.
[2016-08-04] MEDS ORDERED: RIVAROXABAN 15 MG TAB PO SCH (17:30)
[2016-08-04] MEDS: IPRATROPIUM-ALBUTEROL 3 ML NEB INHALATION PRN (21:06)
[2016-08-04] MEDS: FAMOTIDINE 20 MG TAB PO SCH (22:07)
[2016-08-05] MEDS: PIPERACILLIN-TAZOBACTAM 3.375 GM in DEXTROSE/WATER 1 50ML.BAG IVPB SCH ×4 (02:17→23:29)
[2016-08-05] MEDS: IPRATROPIUM-ALBUTEROL 3 ML NEB INHALATION PRN ×2 (07:01→11:10)
[2016-08-05 08:39] LABS: CH 32.4; CHCM 32.9; HCT 40.1 % (34.0-46.0); MCHC 32.4 g/dL (31.0-37.0); RBC 4.05 m/uL (3.80-5.40); RDW 14.4 % (11.5-15.5)
[2016-08-05 08:55] LABS: Anion Gap 9 mmol/L; Blood Urea Nitrogen 14 mg/dL (7-17); Calcium 8.9 mg/dL (8.4-10.2); Carbon Dioxide 26 mmol/L (22-30); Chloride 101 mmol/L (98-107); Glucose 81 mg/dL (74-99); Non-African American GFR(MDRD) >60 (>60 ml/min/1.73 sqM); Potassium 3.9 mmol/L (3.5-5.1); Sodium 136 mmol/L (137-145)
[2016-08-05] MEDS: ATORVASTATIN 20 MG TAB PO SCH (09:05)
[2016-08-05] MEDS: FAMOTIDINE 20 MG TAB PO SCH ×2 (09:05→19:58)
[2016-08-05] MEDS: MELOXICAM 7.5 MG TAB PO SCH ×2 (09:05→19:58)
[2016-08-05] MEDS: amLODIPine 10 MG TAB PO SCH (09:05)
[2016-08-05] MEDS: ATENOLOL 25 MG TAB PO SCH (09:06)
[2016-08-05] MEDS: RALOXIFENE 60 MG TAB PO SCH (09:06)
--- NOTE | 2016-08-05 12:51 | P.PN ---
Subjective Principal diagnosis: Right lower lobe consolidation This is a very pleasant 81-year-old female patient who follows with Dr. Lynch in our office as her primary care provider. She has a history of moderate to severe aortic stenosis aortic valve area of 0.8 cm, multivessel coronary artery disease with most recent cardiac catheterization revealing a 40 % distal left main, 40% proximal LAD, 70% distal LAD, 80% ostial circumflex, 60 % mid RCA. She also has severe peripheral vascular disease. She has chronic atrial fibrillation, pulmonary hypertension, osteoarthritis, osteoporosis, hypertension. She was seen in our office yesterday by Dr. Lynch for steadily deteriorating health. She has also lost approximately 12 pounds. She was also having some shortness of breath and hoarseness. There is concern regarding possible aspiration as well. Her chest x-ray revealed a lobular masslike opacity in the right lower lobe and she was referred to the hospital for further investigation. A computed tomography scan of the chest done in the emergency room with no evidence of pulmonary embolism however there was a right lung consolidation and a large right pleural effusion. Neoplasm remains within the differential. There is no leukocytosis. She is afebrile. No significant cough or congestion. No chills or night sweats. The patient is seen again today the 2016 in follow-up on the regular medical floor. She is awake and alert in no acute distress. She is breathing easier today as compared to yesterday. No fever. No leukocytosis. Maintaining good O2 saturations in the upper 90s on 2 L/m per nasal cannula. The plan is for bronchoscopy with BAL and biopsy with Dr. Lynch today. Her daughter remains at the bedside. Objective - Vital Signs Vital signs: Vital Signs Temp 97.4 F L 08/05/16 07:00 Pulse 84 08/05/16 11:20 Resp 18 08/05/16 08:00 BP 126/71 08/05/16 07:00 Pulse Ox 96 08/05/16 07:01 Intake & Output 08/04/16 08/05/16 08/05/16 18:59 06:59 18:59 Intake Total 100 1150 Balance 100 1150 Weight 42.638 kg 42.638 kg Intake: Intake, IV Titration 100 1150 Amount Piperacillin-Tazobactam 3 100 .375 gm In Dextrose/Water 1 50ml.bag @ 12.5 mls/hr IVPB Q8HR [id number] Rx#: [id number] Sodium Chloride 0.9% 1, 1150 000 ml @ 75 mls/hr IV . [id number] STA Rx#:[id number] Other: # Voids 1 1 1 - Exam GENERAL EXAM: Frail, cachectic. Alert, comfortable in no apparent distress. HEAD: Normocephalic. EYES: Normal reaction of pupils, equal size. NOSE: Clear with pink turbinates. THROAT: No erythema or exudates. NECK: No masses, no JVD. CHEST: No chest wall deformity. LUNGS: Equal air entry with crackles in the right posterior base, diminished.. CVS: S1 and S2 normal with an audible mumur, regular rhythm. ABDOMEN: No hepatosplenomegaly, normal bowel sounds, no guarding or rigidity. SPINE: Kyphoscoliosis. SKIN: No rashes Extremities: There is changes of arthritis noted in the joints. No significant edema. No clubbing, no cyanosis. Peripheral pulses are intact. - Labs CBC & Chem 7: 08/05/16 08:06 08/05/16 08:06 Labs: Abnormal Lab Results - Last 24 Hours (Table) 08/04/16 08/05/16 Range/Units 13:24 08:06 Sodium 136 L (137-145) mmol/L POC Glucose (mg/dL) 347 H (75-99) mg/dL Assessment and Plan Plan: Impression: #1 Acute hypoxic respiratory failure secondary to large right pleural effusion with consolidation/mass. Malignancy remains in the differential versus possible aspiration pneumonia secondary to dysphagia. #2 Dysphagia with hoarseness of unclear etiology. No evidence of aspiration on barium swallow yesterday. #3 Weight loss. #4 Multivessel coronary artery disease. #5 Moderate to severe aortic stenosis. #6 Peripheral vascular disease. #7 Pulmonary hypertension secondary to valvular heart disease. #8 Chronic atrial fibrillation maintained on Xarelto. #9 Osteoporosis. #10 Hypertension. Plan: The patient was seen and evaluated by Dr. Lawson. Her chest x-ray, CT scans and labs were reviewed. The plan is for bronchoscopy with biopsy day with Dr. Lynch. Her Xarelto has been held. We'll repeat her chest x-ray in the a.m. We may plan for thoracentesis tomorrow. We'll continue with her other medications including bronchodilators and antibiotics in the form of Zosyn. The plan was discussed with both the patient and her daughter Romero who are in agreement. We'll continue to follow and make further recommendations based on her clinical status.
[2016-08-05 13:52] VITALS: BMI 17.2
[2016-08-05] MEDS ORDERED: BISACODYL 5 MG TABLET.DR PO STA (15:18)
--- NOTE | 2016-08-05 15:42 | XR ---
EXAMINATION TYPE: XR chest 1V portable DATE OF EXAM: 08/05/2016 3:28 PM Comparison: 08/04/2016 Clinical History: 81-year-old female s/p rt thoracentesis Findings: The heart remains upper limits of normal in size. Hyperinflation with small effusions. Known mass wit hin the right base. 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 No pneumothorax. Chronic changes of the shoulders. Impression: 1. COPD with known right lower lung mass. Small effusions. 2. Widened appearance to the superior mediastinum compatible with the known infiltrating neoplasm. 3. No pneumothorax seen.
[2016-08-05 19:11] LABS: RBC, Body Fluid 470 /uL
[2016-08-05 19:49] LABS: Glucose, BF Source Pleural Fluid; LDH, Body Fluid Source Pleural Fluid; T. Protein, Body Fluid Source Pleural Fluid; Total Protein, Body Fluid 1439 mg/dL
[2016-08-05] MEDS: LATANOPROST 0.005% OPHTH DROPS 2.5 ML BTL RIGHT EYE SCH (19:53)
--- NOTE | 2016-08-06 07:27 | PCN ---
DATE OF PROCEDURE: OPERATIVE REPORT: Right-sided thoracentesis. PREOPERATIVE DIAGNOSIS: Moderate to large right pleural effusion. POSTOPERATIVE DIAGNOSIS: Moderate to large right pleural effusion. ANESTHESIA USED: 2 mL of 1% lidocaine locally. PROCEDURE: Patient was placed in the sitting upright position. The area below the right scapula which was earlier marked by ultrasound guidance, was prepared in a sterile fashion and drapes were applied. The area was locally anesthetized using 2 mL of 1% lidocaine. Then a standard 26-gauge needle was inserted at the same site, advanced into the pleural space until the fluid was localized. Then a standard thoracentesis catheter and needle were used. Prior to the skin was stabbed with size 11 scalpel, and a then a thoracentesis catheter and needle were used, advanced into the pleural space. Fluid was obtained. Then the needle was pulled out of the pleural space and the catheter was advanced into the pleural space. Freely flowing fluid was obtained. Roughly 850 mL of freely flowing fluid, nonbloody was removed from the right pleural space. Procedure was well tolerated, and no evidence of any immediate complications. Fluid was sent for different diagnostic studies.
[2016-08-06] MEDS: PIPERACILLIN-TAZOBACTAM 3.375 GM in DEXTROSE/WATER 1 50ML.BAG IVPB SCH ×3 (08:41→23:43)
[2016-08-06] MEDS: ATORVASTATIN 20 MG TAB PO SCH (08:42)
[2016-08-06] MEDS: amLODIPine 10 MG TAB PO SCH (08:42)
[2016-08-06] MEDS: MELOXICAM 7.5 MG TAB PO SCH ×2 (08:42→21:00)
[2016-08-06] MEDS: RALOXIFENE 60 MG TAB PO SCH (08:44)
[2016-08-06] MEDS: FAMOTIDINE 20 MG TAB PO SCH ×2 (08:44→21:01)
[2016-08-06] MEDS: ATENOLOL 25 MG TAB PO SCH (08:44)
--- NOTE | 2016-08-06 12:45 | P.PN ---
Subjective Principal diagnosis: Right lower lobe consolidation This is a very pleasant 81-year-old female patient who follows with Dr. Lynch in our office as her primary care provider. She has a history of moderate to severe aortic stenosis aortic valve area of 0.8 cm, multivessel coronary artery disease with most recent cardiac catheterization revealing a 40 % distal left main, 40% proximal LAD, 70% distal LAD, 80% ostial circumflex, 60 % mid RCA. She also has severe peripheral vascular disease. She has chronic atrial fibrillation, pulmonary hypertension, osteoarthritis, osteoporosis, hypertension. She was seen in our office yesterday by Dr. Lynch for steadily deteriorating health. She has also lost approximately 12 pounds. She was also having some shortness of breath and hoarseness. There is concern regarding possible aspiration as well. Her chest x-ray revealed a lobular masslike opacity in the right lower lobe and she was referred to the hospital for further investigation. A computed tomography scan of the chest done in the emergency room with no evidence of pulmonary embolism however there was a right lung consolidation and a large right pleural effusion. Neoplasm remains within the differential. There is no leukocytosis. She is afebrile. No significant cough or congestion. No chills or night sweats. The patient is seen again today August 05, 2016 in follow-up on the regular medical floor. She is awake and alert in no acute distress. She is breathing easier today as compared to yesterday. No fever. No leukocytosis. Maintaining good O2 saturations in the upper 90s on 2 L/m per nasal cannula. The plan is for bronchoscopy with BAL and biopsy with Dr. Lynch today. Her daughter remains at the bedside. The patient is seen again today 08/06/2016 in follow-up on the regular medical floor. She is awake and alert in no acute distress. She is more comfortable today as compared to yesterday. She's been breathing easier. She is status post right-sided thoracentesis of approximately 750 MLS cloudy yellow fluid removed. Pathology is pending. The bronchoscopy with BAL and biopsy was postponed until tomorrow unless we get a positive result from the pathology of the fluid analysis. She denies any worsening shortness of breath, cough or congestion. She is maintaining good O2 saturations in the upper 90s on 2 L/m per nasal cannula. She is afebrile. Objective - Vital Signs Vital signs: Vital Signs Temp 97.8 F 08/06/16 07:00 Pulse 98 08/06/16 08:00 Resp 18 08/06/16 08:00 BP 129/73 08/05/16 22:27 Pulse Ox 96 08/06/16 07:00 Intake & Output 08/05/16 08/06/16 08/06/16 18:59 06:59 18:59 Intake Total 240 480 Balance 240 480 Weight 42.638 kg Intake: Oral 240 480 Other: # Voids 1 2 1 - Exam GENERAL EXAM: Frail, cachectic. Alert, comfortable in no apparent distress. HEAD: Normocephalic. EYES: Normal reaction of pupils, equal size. NOSE: Clear with pink turbinates. THROAT: No erythema or exudates. NECK: No masses, no JVD. CHEST: No chest wall deformity. LUNGS: Equal air entry with crackles in the right posterior base, diminished.. CVS: S1 and S2 normal with an audible mumur, regular rhythm. ABDOMEN: No hepatosplenomegaly, normal bowel sounds, no guarding or rigidity. SPINE: Kyphoscoliosis. SKIN: No rashes Extremities: There is changes of arthritis noted in the joints. No significant edema. No clubbing, no cyanosis. Peripheral pulses are intact. - Labs CBC & Chem 7: 08/05/16 08:06 08/05/16 08:06 Labs: Microbiology - Last 24 Hours (Table) 08/05/16 15:00 Gram Stain - Preliminary Pleural Fluid Body Fluid Culture - Preliminary 08/05/16 15:00 Acid Fast Bacilli Culture - Preliminary Pleural Fluid 08/05/16 15:00 Fungal Culture - Preliminary Pleural Fluid Assessment and Plan Plan: Impression: #1 Acute hypoxic respiratory failure secondary to large right pleural effusion with consolidation/mass. Malignancy remains in the differential versus possible aspiration pneumonia secondary to dysphagia. #2 Dysphagia with hoarseness of unclear etiology. No evidence of aspiration on barium swallow yesterday. #3 Weight loss. #4 Multivessel coronary artery disease. #5 Moderate to severe aortic stenosis. #6 Peripheral vascular disease. #7 Pulmonary hypertension secondary to valvular heart disease. #8 Chronic atrial fibrillation maintained on Xarelto. #9 Osteoporosis. #10 Hypertension. Plan: The patient was seen and evaluated by Dr. Lawson. He did perform a thoracentesis of the right side yesterday and approximately 750 MLS returned. Pathology is pending. The plan is for bronchoscopy with biopsy day with Dr. Lynch had been postponed until 08/07/2016 unless the fluid analysis reveals malignancy.. Her Xarelto has been held. We'll continue with her other medications including bronchodilators and antibiotics in the form of Zosyn. We 'll continue to follow and make further recommendations based on her clinical status.
--- NOTE | 2016-08-06 14:39 | XR ---
EXAMINATION TYPE: XR chest 2V DATE OF EXAM: 08/06/2016 2:27 PM COMPARISON: 08/05/2016 TECHNIQUE: PA and lateral views submitted. HISTORY: Difficulty in breathing FINDINGS: Persistent bilateral infiltrate and small effusion. Postsurgical change right shoulder. There is disp lacement of the humeral component of the prostheses of the left shoulder surgery. The noted. IMPRESSION: 1. Bilateral infiltrate and pleural effusion. Patient with reported history of right lung mass. 2. Dislodgment of the humeral prostheses component on the left.
[2016-08-06] MEDS: IPRATROPIUM-ALBUTEROL 3 ML NEB INHALATION PRN ×2 (15:45→19:26)
--- NOTE | 2016-08-06 20:22 | P.PN ---
Subjective Date of service 08/05/2016. Progress note being dictated for Dr. Rowland. Interval history: This is a pleasant 81-year-old female admitted with acute hypoxic respiratory failure secondary to pneumonia and multiple other medical issues. Maintained on nebulized bronchodilators Evaluated by pulmonary with recommendations noted. Nonproductive cough. NPO, scheduled for right-sided thoracentesis today. Bronchoscopy with biopsy rescheduled for Wednesday pending fluid analysis. Chest x-ray ordered by pulmonary, pending. Continues on nebulized bronchodilators, Zosyn. Afebrile, normal wbc. denies chest pain, or palpitations. Currently maintaining O2 sat of 96% on 2 L nasal cannula. Evaluated by speech therapy, underwent barium swallow reporting no evidence of aspiration. Recommendations noted, including "chin tuck." Objective - Vital Signs Vital signs: Vital Signs Temp 97.6 F 08/05/16 12:55 Pulse 94 08/05/16 12:55 Resp 18 08/05/16 12:55 BP 134/73 08/05/16 12:55 Pulse Ox 94 L 08/05/16 12:55 Intake & Output 08/04/16 08/05/16 08/05/16 18:59 06:59 18:59 Intake Total 100 1150 Balance 100 1150 Weight 42.638 kg 42.638 kg 42.638 kg Intake: Intake, IV Titration 100 1150 Amount Piperacillin-Tazobactam 3 100 .375 gm In Dextrose/Water 1 50ml.bag @ 12.5 mls/hr IVPB Q8HR [facility] Rx#: [id number] Sodium Chloride 0.9% 1, 1150 000 ml @ 75 mls/hr IV . [id number] STA Rx#:[id number] Other: # Voids 1 1 1 - Exam PHYSICAL EXAM: VITAL SIGNS: [As above] GENERAL: [Sitting up in bed, no acute distress, visiting with family at bedside] HEENT: [Pupils equal conjunctiva normal. No conjunctival pallor] NECK: [Supple, no JVD] RESPIRATORY EFFORT:[Mildly increased] LUNGS: [Diminished with right basilar crackles(kyphoscoliosis)] CARDIOVASCULAR[regular S1-S2, positive systolic murmur, no edema] GI: [Abdomen soft, nontender, positive bowel sounds.] PSYCH: [Alert and oriented -3, mood and affect normal.] NEURO: No focal deficits, Moves all 4 extremities, strength and sensation grossly intact. - Labs CBC & Chem 7: 08/05/16 08:06 08/05/16 08:06 Labs: Abnormal Lab Results - Last 24 Hours (Table) 08/05/16 Range/Units 08:06 Sodium 136 L (137-145) mmol/L Assessment and Plan Plan: 1. Acute hypoxic respiratory failure secondary to large right pleural effusion with consolidation ,possible aspiration pneumonia, possibly laryngeal paralysis , possible malignancy in a patient with recent weight loss of 12 pounds. 2. [Mild to moderate protein calorie malnutrition, BMI 17.2]. 3. Dysphagia, status post barium swallow with no evidence of aspiration 4. [Chronic Atrial fibrillation, anticoagulated on Xarelto]. 5. [History of CVA/TIA]. 6. [Acute COPD exacerbation,]. 7. [Possible laryngeal paralysis]. 8.[Hypertension]. 9. CAD 10. Moderate to severe aortic stenosis 11. Pulmonary hypertension 12. Peripheral vascular disease 13. Osteoporosis Plan: Continue on current medication regime, amylase bronchodilators, Zosyn, monitoring and symptomatic treatment.NPO for pending right thoracentesis. Follow closely with pulmonary. ENT Dr. Olivia consult in place with recommendations pending. Further recommendations to follow. The impression and plan of care has been dictated as directed. : I performed a H&P examination of this patient and discussed the same with the dictator. I agree with the dictator's note. Any additional findings/opinions/ etc. will be noted.
[2016-08-06] MEDS: LATANOPROST 0.005% OPHTH DROPS 2.5 ML BTL RIGHT EYE SCH (21:01)
[2016-08-06] MEDS ORDERED: DEXAMETHASONE SOD PHOSPHATE 10 MG/ML 1 ML VIAL IV ONE (21:11)
[2016-08-06] MEDS ORDERED: ONDANSETRON 4 MG/2 ML VIAL IVP ONE (21:11)
[2016-08-07] MEDS ORDERED: IV FLUID CONTINUATION 1,000 ML IV ONE (07:24)
[2016-08-07] MEDS: LACTATED RINGERS 1,000 ML IV SCH ×2 (08:11→23:46)
[2016-08-07] MEDS: PIPERACILLIN-TAZOBACTAM 3.375 GM in DEXTROSE/WATER 1 50ML.BAG IVPB SCH ×2 (08:16→18:25)
[2016-08-07] MEDS: ATENOLOL 25 MG TAB PO SCH (08:17)
[2016-08-07] MEDS: RALOXIFENE 60 MG TAB PO SCH (08:17)
[2016-08-07] MEDS: FAMOTIDINE 20 MG TAB PO SCH (08:17)
[2016-08-07] MEDS: ATORVASTATIN 20 MG TAB PO SCH (08:17)
[2016-08-07] MEDS: amLODIPine 10 MG TAB PO SCH (08:17)
[2016-08-07] MEDS: MELOXICAM 7.5 MG TAB PO SCH ×2 (08:17→21:10)
[2016-08-07] MEDS: IPRATROPIUM-ALBUTEROL 3 ML NEB INHALATION PRN ×3 (08:19→20:29)
[2016-08-07 09:23] LABS: Anion Gap 7 mmol/L; Blood Urea Nitrogen 19 mg/dL (7-17); Calcium 8.9 mg/dL (8.4-10.2); Carbon Dioxide 29 mmol/L (22-30); Chloride 99 mmol/L (98-107); Glucose 86 mg/dL (74-99); Non-African American GFR(MDRD) >60 (>60 ml/min/1.73 sqM); Sodium 135 mmol/L (137-145)
[2016-08-07 09:38] LABS: Basophils % (A) 0 %; CH 32.9; Eosinophils # (A) 0.1 k/uL (0-0.7); Eosinophils % (A) 1 %; HCT 37.6 % (34.0-46.0); HDW 2.73; HGB 12.8 gm/dL (11.4-16.0); Luc # (Auto) 0.13; Luc % (Auto) 1; Lymphocytes # (A) 0.5 k/uL (1.0-4.8); Lymphocytes % (A) 5 %; MCH 33.1 pg (25.0-35.0); MCV 97.2 fL (80.0-100.0); Mean Platelet Volume 7.9; Monocytes # (A) 0.5 k/uL (0-1.0); Monocytes % (A) 5 %; Neutrophils # (A) 8.4 k/uL (1.3-7.7); Neutrophils % (A) 87 %; RBC 3.87 m/uL (3.80-5.40); RDW 14.4 % (11.5-15.5); WBC 9.6 k/uL (3.8-10.6); WBC (Perox) 9.86
--- NOTE | 2016-08-07 12:55 | P.PN ---
Subjective Principal diagnosis: Right lower lobe consolidation This is a very pleasant 81-year-old female patient who follows with Dr. Lynch in our office as her primary care provider. She has a history of moderate to severe aortic stenosis aortic valve area of 0.8 cm, multivessel coronary artery disease with most recent cardiac catheterization revealing a 40 % distal left main, 40% proximal LAD, 70% distal LAD, 80% ostial circumflex, 60 % mid RCA. She also has severe peripheral vascular disease. She has chronic atrial fibrillation, pulmonary hypertension, osteoarthritis, osteoporosis, hypertension. She was seen in our office yesterday by Dr. Lynch for steadily deteriorating health. She has also lost approximately 12 pounds. She was also having some shortness of breath and hoarseness. There is concern regarding possible aspiration as well. Her chest x-ray revealed a lobular masslike opacity in the right lower lobe and she was referred to the hospital for further investigation. A computed tomography scan of the chest done in the emergency room with no evidence of pulmonary embolism however there was a right lung consolidation and a large right pleural effusion. Neoplasm remains within the differential. There is no leukocytosis. She is afebrile. No significant cough or congestion. No chills or night sweats. The patient is seen again today August 05, 2016 in follow-up on the regular medical floor. She is awake and alert in no acute distress. She is breathing easier today as compared to yesterday. No fever. No leukocytosis. Maintaining good O2 saturations in the upper 90s on 2 L/m per nasal cannula. The plan is for bronchoscopy with BAL and biopsy with Dr. Lynch today. Her daughter remains at the bedside. The patient is seen again today 08/06/2016 in follow-up on the regular medical floor. She is awake and alert in no acute distress. She is more comfortable today as compared to yesterday. She's been breathing easier. She is status post right-sided thoracentesis of approximately 750 MLS cloudy yellow fluid removed. Pathology is pending. The bronchoscopy with BAL and biopsy was postponed until tomorrow unless we get a positive result from the pathology of the fluid analysis. She denies any worsening shortness of breath, cough or congestion. She is maintaining good O2 saturations in the upper 90s on 2 L/m per nasal cannula. She is afebrile. The patient is seen again today 08/07/2016 in follow-up on the regular medical floor. She states she is breathing easier today as compared to yesterday. She is getting stronger by the day as well. Her appetite is improved. Pathology is still pending from the thoracentesis fluid. The bronchoscopy is on hold until that report is finalized. The cultures revealed no growth. No leukocytosis. She continues to maintain good O2 saturations in the upper 90s on 3 L/m per nasal cannula. She is afebrile. Objective - Vital Signs Vital signs: Vital Signs Temp 97.8 F 08/07/16 07:15 Pulse 86 08/07/16 08:30 Resp 18 08/07/16 08:00 BP 122/79 08/07/16 07:15 Pulse Ox 96 08/07/16 07:15 Intake & Output 08/06/16 08/07/16 08/07/16 18:59 06:59 18:59 Intake Total 480 250 50 Output Total 400 Balance 80 250 50 Intake: IV 50 50 Piperacillin-Tazobactam 3 50 .375 gm In Dextrose/Water 1 50ml.bag @ 12.5 mls/hr IVPB Q8HR [facility] Rx#: [id number] Oral 480 200 Output: Urine 400 Other: # Voids 1 2 1 - Exam GENERAL EXAM: Frail, cachectic. Alert, comfortable in no apparent distress. HEAD: Normocephalic. EYES: Normal reaction of pupils, equal size. NOSE: Clear with pink turbinates. THROAT: No erythema or exudates. NECK: No masses, no JVD. CHEST: No chest wall deformity. LUNGS: Equal air entry with crackles in the right posterior base, diminished.. CVS: S1 and S2 normal with an audible mumur, regular rhythm. ABDOMEN: No hepatosplenomegaly, normal bowel sounds, no guarding or rigidity. SPINE: Kyphoscoliosis. SKIN: No rashes Extremities: There is changes of arthritis noted in the joints. No significant edema. No clubbing, no cyanosis. Peripheral pulses are intact. - Labs CBC & Chem 7: 08/07/16 08:45 08/07/16 08:45 Labs: Abnormal Lab Results - Last 24 Hours (Table) 08/07/16 08/07/16 Range/Units 08:45 08:45 Neutrophils # 8.4 H (1.3-7.7) k/uL Lymphocytes # 0.5 L (1.0-4.8) k/uL Sodium 135 L (137-145) mmol/L BUN 19 H (7-17) mg/dL Microbiology - Last 24 Hours (Table) 08/05/16 15:00 Gram Stain - Preliminary Pleural Fluid Body Fluid Culture - Preliminary 08/05/16 15:00 Acid Fast Bacilli Smear - Final Pleural Fluid Acid Fast Bacilli Culture - Preliminary Assessment and Plan Plan: Impression: #1 Acute hypoxic respiratory failure secondary to large right pleural effusion with consolidation/mass. Malignancy remains in the differential versus possible aspiration pneumonia secondary to dysphagia. Status post right thoracentesis. Pathology is pending. #2 Dysphagia with hoarseness of unclear etiology. No evidence of aspiration on barium swallow. #3 Weight loss. #4 Multivessel coronary artery disease. #5 Moderate to severe aortic stenosis. #6 Peripheral vascular disease. #7 Pulmonary hypertension secondary to valvular heart disease. #8 Chronic atrial fibrillation maintained on Xarelto. #9 Osteoporosis. #10 Hypertension. Plan: The patient was seen and evaluated by Dr. Lawson. He did perform a thoracentesis of the right side and approximately 750 MLS returned. Pathology is pending. The plan for bronchoscopy with biopsy with Dr. Lynch had been postponed until the fluid analysis is finalized. Plan is for discharge to her daughter's home tomorrow. We'll continue to follow and make further recommendations based on her clinical status.
[2016-08-07] MEDS ORDERED: RIVAROXABAN 15 MG TAB PO SCH (17:30)
[2016-08-07 17:33] VITALS: TEMP 97.4
--- NOTE | 2016-08-07 19:50 | P.PN ---
Subjective Date of service 08/06/2016. Progress note being dictated for Dr. Rowland. Interval history: This is a pleasant 81-year-old female admitted with acute hypoxic respiratory failure secondary to pneumonia and multiple other medical issues. Maintained on nebulized bronchodilators Evaluated by pulmonary with recommendations noted. Underwent right-sided thoracentesis with 850 MLS of nonbloody,yellow pleural fluid drained. Culture sent, cytology pending. Bronchoscopy on hold, pending cultures and cytology. Maintained on nebulized bronchodilators, Zosyn. Breathing stable, maintaining O2 sat of 95% on 3 L nasal cannula. Nonproductive cough. Afebrile. Objective - Vital Signs Vital signs: Vital Signs Temp 97.2 F L 08/06/16 15:00 Pulse 81 08/06/16 19:38 Resp 20 08/06/16 16:00 BP 121/80 08/06/16 15:00 Pulse Ox 95 08/06/16 15:00 Intake & Output 08/06/16 08/06/16 08/07/16 06:59 18:59 06:59 Intake Total 480 480 Output Total 400 Balance 480 80 Intake: Oral 480 480 Output: Urine 400 Other: # Voids 2 1 - Exam PHYSICAL EXAM: VITAL SIGNS: [As above] GENERAL: [Sitting up in chair, no acute distress, family at bedside] HEENT: [Pupils equal conjunctiva normal. No conjunctival pallor] NECK: [Supple, no JVD] RESPIRATORY EFFORT:[Mildly increased] LUNGS: [Diminished with right basilar crackles(kyphoscoliosis), no rhonchi, no wheezing] CARDIOVASCULAR[regular S1-S2, positive systolic murmur, no edema] GI: [Abdomen soft, nontender, positive bowel sounds.] PSYCH: [Alert and oriented -3, mood and affect normal.] NEURO: No focal deficits, Moves all 4 extremities, strength and sensation grossly intact. - Labs CBC & Chem 7: 08/07/16 08:45 08/07/16 08:45 Labs: Microbiology - Last 24 Hours (Table) 08/05/16 15:00 Gram Stain - Preliminary Pleural Fluid Body Fluid Culture - Preliminary 08/05/16 15:00 Acid Fast Bacilli Culture - Preliminary Pleural Fluid 08/05/16 15:00 Fungal Culture - Preliminary Pleural Fluid Assessment and Plan Plan: 1. Acute hypoxic respiratory failure secondary to large right pleural effusion with consolidation ,possible aspiration pneumonia, possibly laryngeal paralysis , possible malignancy in a patient with recent weight loss of 12 pounds. 2. [Mild to moderate protein calorie malnutrition, BMI 17.2]. 3. Dysphagia, status post barium swallow with no evidence of aspiration 4. [Chronic Atrial fibrillation, anticoagulated on Xarelto]. 5. [History of CVA/TIA]. 6. [Acute COPD exacerbation,]. 7. [Possible laryngeal paralysis]. 8.[Hypertension]. 9. CAD 10. Moderate to severe aortic stenosis 11. Pulmonary hypertension 12. Peripheral vascular disease 13. Osteoporosis Plan: Continue on current medication regime, nebulized bronchodilators, Zosyn, monitoring and symptomatic treatment. Await pleural fluid cultures/cytology results. Increase ambulation as tolerated. As mentioned above bronchoscopy on hold. Further recommendations to follow. The impression and plan of care has been dictated as directed. : I performed a H&P examination of this patient and discussed the same with the dictator. I agree with the dictator's note. Any additional findings/opinions/ etc. will be noted.
--- NOTE | 2016-08-07 19:58 | P.PN ---
Subjective Date of service 08/07/2016. Progress note being dictated for Dr. Rowland. Interval history: This is a pleasant 81-year-old female admitted with acute hypoxic respiratory failure secondary to pneumonia and multiple other medical issues. Status post right-sided thoracentesis, cytology pending. Preliminary Cultures reporting no growth. Bronchoscopy remains on hold, pending cytology. Maintained on nebulized bronchodilators, Zosyn. Sitting up in chair with good appetite. Feels stronger, positive attitude. Breathing stable.Nonproductive cough. Dr. Olivia is out of town until next week, family is okay with following up with him outpatient. Maintaining O2 sats in the upper 90s on 3 L nasal cannula .Afebrile. Objective - Vital Signs Vital signs: Vital Signs Temp 97.4 F L 08/07/16 15:00 Pulse 88 08/07/16 16:31 Resp 18 08/07/16 16:00 BP 127/58 08/07/16 15:00 Pulse Ox 100 08/07/16 15:00 Intake & Output 08/07/16 08/07/16 08/08/16 06:59 18:59 06:59 Intake Total 250 600 Output Total 200 Balance 250 400 Intake: IV 50 100 Piperacillin-Tazobactam 3 50 50 .375 gm In Dextrose/Water 1 50ml.bag @ 12.5 mls/hr IVPB Q8HR [facility] Rx#: [id number] Intake, IV Titration 200 Amount Lactated Ringers 1,000 ml 200 @ 20 mls/hr IV .Q24H [facility] Rx#:[id number] Oral 200 300 Output: Urine 200 Other: # Voids 2 2 # Bowel Movements 1 - Exam PHYSICAL EXAM: VITAL SIGNS: [As above] GENERAL: [Sitting up in chair, no acute distress, family at bedside] HEENT: [Pupils equal conjunctiva normal. No conjunctival pallor] NECK: [Supple, no JVD] RESPIRATORY EFFORT:[Mildly increased] LUNGS: [Diminished with right basilar crackles(kyphoscoliosis), no rhonchi, no wheezing] CARDIOVASCULAR[regular S1-S2, positive systolic murmur, no edema] GI: [Abdomen soft, nontender, positive bowel sounds.] PSYCH: [Alert and oriented -3, mood and affect normal.] NEURO: No focal deficits, Moves all 4 extremities, strength and sensation grossly intact. - Labs CBC & Chem 7: 05/05/17 08:45 08/07/16 08:45 Labs: Abnormal Lab Results - Last 24 Hours (Table) 08/07/16 08/07/16 Range/Units 08:45 08:45 Neutrophils # 8.4 H (1.3-7.7) k/uL Lymphocytes # 0.5 L (1.0-4.8) k/uL Sodium 135 L (137-145) mmol/L BUN 19 H (7-17) mg/dL Microbiology - Last 24 Hours (Table) 08/05/16 15:00 Gram Stain - Preliminary Pleural Fluid Body Fluid Culture - Preliminary 08/05/16 15:00 Acid Fast Bacilli Smear - Final Pleural Fluid Acid Fast Bacilli Culture - Preliminary Assessment and Plan Plan: 1. Acute hypoxic respiratory failure secondary to large right pleural effusion with consolidation ,possible aspiration pneumonia, possibly laryngeal paralysis , possible malignancy in a patient with recent weight loss of 12 pounds. Status post right thoracentesis, cytology pending 2. [Mild to moderate protein calorie malnutrition, BMI 17.2]. 3. Dysphagia, status post barium swallow with no evidence of aspiration 4. [Chronic Atrial fibrillation, anticoagulated on Xarelto]. 5. [History of CVA/TIA]. 6. [Acute COPD exacerbation,]. 7. [Possible laryngeal paralysis]. 8.[Hypertension]. 9. CAD 10. Moderate to severe aortic stenosis 11. Pulmonary hypertension 12. Peripheral vascular disease 13. Osteoporosis Plan: Continue on current medication regime, nebulized bronchodilators, Zosyn, monitoring and symptomatic treatment. Pleural cytology pending with bronchoscopy currently on hold. Increase ambulation as tolerated. Discharge planning in progress for tomorrow. Further recommendations to follow. The impression and plan of care has been dictated as directed. : I performed a H&P examination of this patient and discussed the same with the dictator. I agree with the dictator's note. Any additional findings/opinions/ etc. will be noted.
[2016-08-07] MEDS: LATANOPROST 0.005% OPHTH DROPS 2.5 ML BTL RIGHT EYE SCH (21:10)
[2016-08-08] MEDS: PIPERACILLIN-TAZOBACTAM 3.375 GM in DEXTROSE/WATER 1 50ML.BAG IVPB SCH ×2 (01:13→08:37)
[2016-08-08] MEDS: IPRATROPIUM-ALBUTEROL 3 ML NEB INHALATION PRN ×4 (03:57→16:09)
[2016-08-08 08:05] VITALS: BP 148/66
[2016-08-08] MEDS: ATENOLOL 25 MG TAB PO SCH (08:38)
[2016-08-08] MEDS: ATORVASTATIN 20 MG TAB PO SCH (08:38)
[2016-08-08] MEDS: MELOXICAM 7.5 MG TAB PO SCH (08:38)
[2016-08-08] MEDS: RALOXIFENE 60 MG TAB PO SCH (08:40)
[2016-08-08] MEDS: amLODIPine 10 MG TAB PO SCH (08:41)
[2016-08-08] MEDS ORDERED: FAMOTIDINE 20 MG TAB PO SCH (09:00)
--- NOTE | 2016-08-08 11:03 | XR ---
EXAMINATION TYPE: XR chest 2V DATE OF EXAM: 08/08/2016 10:47 AM COMPARISON: Prior chest x-ray for August 2016 HISTORY: Fluid in lungs, pleural effusion TECHNIQUE: Frontal and lateral views of the chest are obtained. FINDINGS: Similar to previous exam. Abnormal increased density present at the lung bases. Apparent d isplacement of the shoulder prosthesis, dislocation. Chronic remodeling present in the right shoulder . There is no pneumothorax. IMPRESSION: Small left pleural effusion. Mediastinal adenopathy, mass in the right lung is unchanged .
--- NOTE | 2016-08-08 11:51 | P.PN ---
Subjective Principal diagnosis: Advanced bronchogenic carcinoma and pleural effusion This is a very pleasant 81-year-old female patient who follows with Dr. Lynch in our office as her primary care provider. She has a history of moderate to severe aortic stenosis aortic valve area of 0.8 cm, multivessel coronary artery disease with most recent cardiac catheterization revealing a 40 % distal left main, 40% proximal LAD, 70% distal LAD, 80% ostial circumflex, 60 % mid RCA. She also has severe peripheral vascular disease. She has chronic atrial fibrillation, pulmonary hypertension, osteoarthritis, osteoporosis, hypertension. She was seen in our office yesterday by Dr. Lynch for steadily deteriorating health. She has also lost approximately 12 pounds. She was also having some shortness of breath and hoarseness. There is concern regarding possible aspiration as well. Her chest x-ray revealed a lobular masslike opacity in the right lower lobe and she was referred to the hospital for further investigation. A computed tomography scan of the chest done in the emergency room with no evidence of pulmonary embolism however there was a right lung consolidation and a large right pleural effusion. Neoplasm remains within the differential. There is no leukocytosis. She is afebrile. No significant cough or congestion. No chills or night sweats. The patient is seen again today August 05, 2016 in follow-up on the regular medical floor. She is awake and alert in no acute distress. She is breathing easier today as compared to yesterday. No fever. No leukocytosis. Maintaining good O2 saturations in the upper 90s on 2 L/m per nasal cannula. The plan is for bronchoscopy with BAL and biopsy with Dr. Lynch today. Her daughter remains at the bedside. The patient is seen again today 08/06/2016 in follow-up on the regular medical floor. She is awake and alert in no acute distress. She is more comfortable today as compared to yesterday. She's been breathing easier. She is status post right-sided thoracentesis of approximately 750 MLS cloudy yellow fluid removed. Pathology is pending. The bronchoscopy with BAL and biopsy was postponed until tomorrow unless we get a positive result from the pathology of the fluid analysis. She denies any worsening shortness of breath, cough or congestion. She is maintaining good O2 saturations in the upper 90s on 2 L/m per nasal cannula. She is afebrile. The patient is seen again today 08/07/2016 in follow-up on the regular medical floor. She states she is breathing easier today as compared to yesterday. She is getting stronger by the day as well. Her appetite is improved. Pathology is still pending from the thoracentesis fluid. The bronchoscopy is on hold until that report is finalized. The cultures revealed no growth. No leukocytosis. She continues to maintain good O2 saturations in the upper 90s on 3 L/m per nasal cannula. She is afebrile. Patient was reevaluated today on 08/08/2016, he is basically about the same, made aware of the fact that her pleural effusion is positive for malignancy, however the final report is not available yet. Preliminary report on the cytology is positive for cancer. Hence the patient will not need any further diagnostic studies at this point. Clinically the patient is about the same. Her CBC is relatively unremarkable, electrolytes and basic metabolic profile are normal. Objective - Vital Signs Vital signs: Vital Signs Temp 97.4 F L 08/08/16 07:00 Pulse 82 08/08/16 07:59 Resp 16 08/08/16 08:48 BP 148/66 08/08/16 07:00 Pulse Ox 95 08/08/16 07:00 Intake & Output 08/07/16 08/08/16 08/08/16 18:59 06:59 18:59 Intake Total 600 310 Output Total 200 Balance 400 310 Intake: IV 100 100 Piperacillin-Tazobactam 3 50 100 .375 gm In Dextrose/Water 1 50ml.bag @ 12.5 mls/hr IVPB Q8HR [facility] Rx#: [id number] Intake, IV Titration 200 60 Amount Lactated Ringers 1,000 ml 200 60 @ 20 mls/hr IV .Q24H [facility]OT Rx#:[id number] Oral 300 150 Output: Urine 200 Other: Voiding Method Bedside Commode Bedside Commode Diaper Diaper # Voids 2 1 # Bowel Movements 1 - Exam ENERAL EXAM: Frail, cachectic. Alert, comfortable in no apparent distress. HEAD: Normocephalic. EYES: Normal reaction of pupils, equal size. NOSE: Clear with pink turbinates. THROAT: No erythema or exudates. NECK: No masses, no JVD. CHEST: No chest wall deformity. LUNGS: Equal air entry with crackles in the right posterior base, diminished.. CVS: S1 and S2 normal with an audible mumur, regular rhythm. ABDOMEN: No hepatosplenomegaly, normal bowel sounds, no guarding or rigidity. SPINE: Kyphoscoliosis. SKIN: No rashes Extremities: There is changes of arthritis noted in the joints. No significant edema. No clubbing, no cyanosis. Peripheral pulses are intact. - Labs CBC & Chem 7: 08/07/16 08:45 08/07/16 08:45 Labs: Microbiology - Last 24 Hours (Table) 08/05/16 15:00 Gram Stain - Preliminary Pleural Fluid Body Fluid Culture - Preliminary Assessment and Plan Plan: #1 Acute hypoxic respiratory failure secondary to large right pleural effusion with consolidation/mass. Malignancy remains in the differential versus possible aspiration pneumonia secondary to dysphagia. Status post right thoracentesis. Pathology is pending. #2 Dysphagia with hoarseness of unclear etiology. No evidence of aspiration on barium swallow. #3 Weight loss. #4 Multivessel coronary artery disease. #5 Moderate to severe aortic stenosis. #6 Peripheral vascular disease. #7 Pulmonary hypertension secondary to valvular heart disease. #8 Chronic atrial fibrillation maintained on Xarelto. #9 Osteoporosis. #10 Hypertension. Recommendation reviewed with the patient her most recent cytology preliminary report, patient does not have a final official diagnosis yet, if this turns out to be non-small cell lung carcinoma, I would strongly recommend comfort care measures only. Doubt if the patient couldn't tolerate chemotherapy. However in this turned out to be a small cell lung cancer, different options would be considered. We'll continue to follow. Prognosis is definitely poor and guarded Time with Patient: Less than 30
[2016-08-08 12:39] VITALS: RESP 18
[2016-08-08 16:21] VITALS: PULSE 82
--- NOTE | 2016-08-12 12:01 | CDI ---
In responding to this query, please exercise your independent professional judgment. The [facility] Coding Staff and Clinical Documentation Specialists appreciate your assistance in clarifying documentation, maintaining compliance with coding guidelines, accurately documenting patients condition and capturing severity of illness. The fact that a question is asked does not imply that any particular answer is desired or expected. Communication forms are a method of clarifying documentation and are not made part of the Legal Health Record. Thank you in advance for your clarification. Last Revision, June 2015 Efra Escalante [address] [facility] [place] [address] Documentation Clarification Form Date: 08/12/2016 11:48:00 AM From: Breanna Hughes Admit Date: 08/03/2016 7:25:00 PM Patient Name: Jose Friedman Visit Number: [id number] Discharge Date: 08/12/16 Dr. 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 Patient history/risk factors: Atrial fibrillation, COPD, hx of CVA/TIA, HTN, former smoker, Acute hypoxic respiratory failure secondary to possible aspiration pneumonia, right pleural effusion In your professional opinion, do you agree with the pathology report specifying pleural effusion as metastatic poorly differentiated carcinoma? Agree with dx metastatic poorly differeniated carcinoma No Other (please specify) Unable to determine Please document in your progress notes and/or discharge summary in order to capture severity of illness and risk of mortality. Include clinical findings that support your diagnosis. FYI: Press F11 to launch patient chart __x___ Place X here if this finding has no clinical significance, is not applicable or if you are not able to provide any additional documentation. MARY Tanner, CCS, AHIAR Certified I-10 [employer] Neck Whipper/[place]/[employer] Neck Whipper II If you have any questions or concerns please contact Ashly Shay, Auto Seat Cover Installer, Efra Escalante @ [phone] Pathology was not available at discharge. [facility]
--- NOTE | 2016-08-25 10:32 | DS ---
DATE OF ADMISSION: 08/03/2016 DATE OF DISCHARGE: 08/08/2016 DATE OF SERVICE: 08/08/2016 An 81-year-old female admitted with acute hypoxic respiratory failure secondary to right-sided pleural effusion, possibility of malignant pleural effusion. I do not believe patient has sepsis at this time. There is a high change of malignancy and if turns out to be malignancy, patient is more appropriate for comfort care measures at that time. Patient was seen and examined on the day of discharge. FINAL DIAGNOSES: 1. Acute hypoxic respiratory failure secondary to large right-sided pleural effusion, status post thoracocentesis and patient had possible laryngeal paralysis. 2. Mild to moderate protein calorie malnutrition. 3. Dysphagia, underwent barium swallow. 4. Chronic atrial fibrillation. 5. Chronic obstructive pulmonary disease with mild acute exacerbation. 6. Hypertension. 7. Coronary artery disease. 8. Moderate to severe aortic stenosis. 9. Pulmonary hypertension. 10. Peripheral vascular disease. 11. Osteoporosis. Please refer to be my depart summary for the details of discharge medications. Activity as tolerated. Cardiac diet.
== END 2016-08-08 16:46 | disposition home or self-care (01) | DRG 177 ==
LOC: EC 16:42 → 5MS5E 19:25
PROVIDERS: ADMIT Internal Medicine; ATTEND Internal Medicine
PROC: 0W993ZX Drainage of Right Pleural Cavity, Percutaneous Approach, Diagnostic (ICD-10-PCS; principal; 2016-08-05)
DX: J69.0 Pneumonitis due to inhalation of food and vomit (principal); J96.01 Acute respiratory failure with hypoxia; E44.0 Moderate protein-calorie malnutrition; J91.8 Pleural effusion in other conditions classified elsewhere; T84.028A Dislocation of other internal joint prosthesis, initial encounter; J44.1 Chronic obstructive pulmonary disease with (acute) exacerbation; I27.2 Other secondary pulmonary hypertension; J38.00 Paralysis of vocal cords and larynx, unspecified; I48.2 Chronic atrial fibrillation; R13.10 Dysphagia, unspecified; I10 Essential (primary) hypertension; I25.10 Atherosclerotic heart disease of native coronary artery without angina pectoris; I35.0 Nonrheumatic aortic (valve) stenosis; I73.9 Peripheral vascular disease, unspecified; M19.91 Primary osteoarthritis, unspecified site; M81.0 Age-related osteoporosis without current pathological fracture; Z86.73 Personal history of transient ischemic attack (TIA), and cerebral infarction without residual deficits; Z87.891 Personal history of nicotine dependence; Z85.828 Personal history of other malignant neoplasm of skin; Z98.42 Cataract extraction status, left eye; Z98.41 Cataract extraction status, right eye; Z96.612 Presence of left artificial shoulder joint; Z96.611 Presence of right artificial shoulder joint; Z96.641 Presence of right artificial hip joint; Z79.01 Long term (current) use of anticoagulants; Z79.810 Long term (current) use of selective estrogen receptor modulators (SERMs); Z79.1 Long term (current) use of non-steroidal anti-inflammatories (NSAID); Z79.899 Other long term (current) drug therapy
CPT/HCPCS: 36415; 71010; 71020; 71275; 74230; 76604; 80048; 80053; 82550; 82553; 82945; 83615; 83880; 84157; 84484; 85025; 85027; 85610; 85730; 87040; 87070; 87102; 87116; 87205; 87206; 88108; 88305; 88341; 88342; 89050; 93005; 94640; 94760; 96365; 96366; 99215; 99285

== ENCOUNTER 2016-08-12 19:41 | Inpatient (IN) | payer MEDICARE, BC ==
[2016-08-12] MEDS ORDERED: IPRATROPIUM-ALBUTEROL 3 ML NEB INHALATION STA (20:21)
[2016-08-12] MEDS ORDERED: SODIUM CHLORIDE 0.9% 1,000 ML IV STA (20:21)
[2016-08-12 20:56] LABS: Basophils # (A) 0.1 k/uL (0-0.2); Basophils % (A) 1 %; CH 32.7; CHCM 33.7; Eosinophils # (A) 0.1 k/uL (0-0.7); Eosinophils % (A) 1 %; HCT 38.5 % (34.0-46.0); HDW 2.78; HGB 12.6 gm/dL (11.4-16.0); Luc # (Auto) 0.15; Luc % (Auto) 2; Lymphocytes # (A) 0.5 k/uL (1.0-4.8); Lymphocytes % (A) 5 %; MCH 32.1 pg (25.0-35.0); MCHC 32.8 g/dL (31.0-37.0); MCV 97.6 fL (80.0-100.0); Monocytes # (A) 0.5 k/uL (0-1.0); Monocytes % (A) 5 %; Neutrophils # (A) 8.7 k/uL (1.3-7.7); Neutrophils % (A) 87 %; RBC 3.94 m/uL (3.80-5.40); RDW 14.6 % (11.5-15.5); WBC 10.1 k/uL (3.8-10.6); WBC (Perox) 10.78
[2016-08-12 21:19] LABS: Creatine Kinase 54 U/L (30-135)
[2016-08-12 21:21] LABS: ALT 27 U/L (9-52); AST 61 U/L (14-36); Alkaline Phosphatase 70 U/L (38-126); Anion Gap 8 mmol/L; Blood Urea Nitrogen 23 mg/dL (7-17); Calcium 9.3 mg/dL (8.4-10.2); Carbon Dioxide 27 mmol/L (22-30); Chloride 95 mmol/L (98-107); Glucose 93 mg/dL (74-99); Magnesium 1.6 mg/dL (1.6-2.3); Non-African American GFR(MDRD) >60 (>60 ml/min/1.73 sqM); Potassium 4.8 mmol/L (3.5-5.1); Sodium 130 mmol/L (137-145); Total Bilirubin 0.9 mg/dL (0.2-1.3); Total Protein 6.7 g/dL (6.3-8.2)
--- NOTE | 2016-08-12 21:27 | XR ---
EXAMINATION TYPE: XR chest 2V DATE OF EXAM: 08/12/2016 9:17 PM COMPARISON: 08/08/2016 HISTORY: Difficulty breathing TECHNIQUE: Frontal and lateral views of the chest are obtained. FINDINGS: There is probably vascular congestion. Heart is enlarged. There are probably some infiltra carla the lung bases. There is increased right middle lobe density. There is blunting costophrenic angl es. IMPRESSION: Congestive heart failure with pleural effusions. Right middle lobe consolidation without change compared to yesterday. Chest x-ray overall is unchanged.
[2016-08-12 21:32] LABS: Troponin I <0.012 ng/mL (0.000-0.034)
[2016-08-12 21:40] LABS: Creatine Kinase MB 5.1 ng/mL (0.0-2.4)
--- NOTE | 2016-08-12 21:51 | ED ---
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 No fevers chills or sweats reported. No other complaints at this time MD Complaint: shortness of breath - Related Data Home Medications Medication Instructions Recorded Confirmed Atenolol 25 mg PO DAILY 09/04/13 08/12/16 Fluticasone Propionate [Flonase] 1 spray EA NOSTRIL BID PRN 09/04/13 08/12/16 Nabumetone [Relafen] 750 mg PO BID 09/04/13 08/12/16 Raloxifene [Evista] 60 mg PO DAILY 09/04/13 08/12/16 amLODIPine BESYLATE [Norvasc] 10 mg PO DAILY 09/04/13 08/12/16 Atorvastatin [Lipitor] 20 mg PO DAILY 08/03/16 08/12/16 Fluocinolone Acetonide Oil 5 drops BOTH EARS BID PRN 08/03/16 08/12/16 [Fluocinolone Acetonide Oil (Otic)] Rivaroxaban [Xarelto] 15 mg PO W/SUPPER 08/03/16 08/12/16 Travoprost [Travatan Z 0.004%] 1 drop RIGHT EYE HS 08/03/16 08/12/16 Ipratropium-Albuterol Nebulize 3 ml INHALATION RT-QID PRN 08/12/16 08/12/16 [Duoneb 0.5 mg-3 mg/3 ml Soln] Previous Rx's Medication Instructions Recorded ALPRAZolam [Xanax] 0.25 mg PO TID PRN #30 tab 08/08/16 Amoxic-Pot Clav 875-125Mg 1 tab PO Q12HR #6 tablet 08/08/16 [Augmentin 875-125] Dronabinol [Marinol] 2.5 mg PO BID #30 capsule 08/08/16 Allergies Allergy/AdvReac Type Severity Reaction Status Date / Time diazepam [From Valium] AdvReac Hallucinati Verified 08/12/16 20:55 ons Review of Systems ROS Statement: Those systems with pertinent positive or pertinent negative responses have been documented in the HPI. ROS Other: All systems not noted in ROS Statement are negative. Past Medical History Past Medical History: Atrial Fibrillation, Cancer, COPD, CVA/TIA, Hypertension, Osteoarthritis (OA) Additional Past Medical History / Comment(s): DDD, SKIN CANCER History of Any Multi-Drug Resistant Organisms: None Reported Past Surgical History: Back Surgery, Joint Replacement, Orthopedic Surgery Additional Past Surgical History / Comment(s): CANCER SPOTS REMOVED FROM FACE, , TOE SPURS, BILAT CATARACTS, RT ANTONIO X 3, BILAT SHOULDER SX. COLONOSCOPY Past Anesthesia/Blood Transfusion Reactions: No Reported Reaction Past Psychological History: No Psychological Hx Reported Smoking Status: Former smoker Past Alcohol Use History: None Reported Additional Past Alcohol Use History / Comment(s): QUIT SMOKING 06/20/1997 Past Drug Use History: None Reported - Past Family History Sister(s) Family Medical History: Cancer General Exam - General Exam Comments Initial Comments: This is a well-developed asthenic appearing female she does appear to be dyspneic Limitations: physical limitation General appearance: alert, lethargic, in distress Head exam: Present: atraumatic, normocephalic, normal inspection Eye exam: Present: normal appearance, PERRL, EOMI. Absent: scleral icterus, conjunctival injection, periorbital swelling ENT exam: Present: mucous membranes dry Respiratory exam: Present: decreased breath sounds Cardiovascular Exam: Present: regular rate, normal rhythm, normal heart sounds. Absent: systolic murmur, diastolic murmur, rubs, gallop, clicks GI/Abdominal exam: Present: soft, normal bowel sounds. Absent: distended, tenderness, guarding, rebound, rigid Extremities exam: Present: normal capillary refill, pedal edema Back exam: Present: normal inspection Neurological exam: Present: alert, oriented X3, CN II-XII intact Skin exam: Present: warm, dry Course Vital Signs 08/12/16 08/12/16 08/12/16 19:49 19:52 20:17 Pulse Rate 91 88 Respiratory 18 26 H Rate Blood Pressure 132/88 132/80 O2 Sat by Pulse 98 98 Oximetry 08/12/16 08/12/16 08/12/16 20:52 21:24 21:52 Pulse Rate 80 91 60 Respiratory 18 20 Rate Blood Pressure 118/67 133/62 O2 Sat by Pulse 98 96 Oximetry Medical Decision Making - Medical Decision Making I did discuss findings with patient family members patient will be admitted Dr. Donaldo welch come to the emergency department and see the patient. Dr. BANUELOS will be consulted - Lab Data Result diagrams: 08/12/16 20:42 08/12/16 20:42 Lab Results 08/12/16 08/12/16 08/12/16 Range/Units 20:42 20:42 20:42 WBC 10.1 (3.8-10.6) k/uL RBC 3.94 (3.80-5.40) m/uL Hgb 12.6 (11.4-16.0) gm/dL Hct 38.5 (34.0-46.0) % MCV 97.6 (80.0-100.0) fL MCH 32.1 (25.0-35.0) pg MCHC 32.8 (31.0-37.0) g/dL RDW 14.6 (11.5-15.5) % Plt Count 286 (150-450) k/uL Neutrophils % 87 % Lymphocytes % 5 % Monocytes % 5 % Eosinophils % 1 % Basophils % 1 % Neutrophils # 8.7 H (1.3-7.7) k/uL Lymphocytes # 0.5 L (1.0-4.8) k/uL Monocytes # 0.5 (0-1.0) k/uL Eosinophils # 0.1 (0-0.7) k/uL Basophils # 0.1 (0-0.2) k/uL Sodium 130 L (137-145) mmol/L Potassium 4.8 (3.5-5.1) mmol/L Chloride 95 L (98-107) mmol/L Carbon Dioxide 27 (22-30) mmol/L Anion Gap 8 mmol/L BUN 23 H (7-17) mg/dL Creatinine 0.56 (0.52-1.04) mg/dL Est GFR (MDRD) Af Amer >60 (>60 ml/min/1.73 sqM) Est GFR (MDRD) Non-Af >60 (>60 ml/min/1.73 sqM) Glucose 93 (74-99) mg/dL Plasma Lactic Acid Juancho (0.7-2.0) mmol/L Calcium 9.3 (8.4-10.2) mg/dL Magnesium 1.6 (1.6-2.3) mg/dL Total Bilirubin 0.9 (0.2-1.3) mg/dL AST 61 H (14-36) U/L ALT 27 (9-52) U/L Alkaline Phosphatase 70 (38-126) U/L Total Creatine Kinase 54 (30-135) U/L CK-MB (CK-2) 5.1 H* (0.0-2.4) ng/mL CK-MB (CK-2) Rel Index 9.4 Troponin I <0.012 (0.000-0.034) ng/mL Total Protein 6.7 (6.3-8.2) g/dL Albumin 3.3 L (3.5-5.0) g/dL 08/12/16 Range/Units 20:42 WBC (3.8-10.6) k/uL RBC (3.80-5.40) m/uL Hgb (11.4-16.0) gm/dL Hct (34.0-46.0) % MCV (80.0-100.0) fL MCH (25.0-35.0) pg MCHC (31.0-37.0) g/dL RDW (11.5-15.5) % Plt Count (150-450) k/uL Neutrophils % % Lymphocytes % % Monocytes % % Eosinophils % % Basophils % % Neutrophils # (1.3-7.7) k/uL Lymphocytes # (1.0-4.8) k/uL Monocytes # (0-1.0) k/uL Eosinophils # (0-0.7) k/uL Basophils # (0-0.2) k/uL Sodium (137-145) mmol/L Potassium (3.5-5.1) mmol/L Chloride (98-107) mmol/L Carbon Dioxide (22-30) mmol/L Anion Gap mmol/L BUN (7-17) mg/dL Creatinine (0.52-1.04) mg/dL Est GFR (MDRD) Af Amer (>60 ml/min/1.73 sqM) Est GFR (MDRD) Non-Af (>60 ml/min/1.73 sqM) Glucose (74-99) mg/dL Plasma Lactic Acid Juancho 2.1 H (0.7-2.0) mmol/L Calcium (8.4-10.2) mg/dL Magnesium (1.6-2.3) mg/dL Total Bilirubin (0.2-1.3) mg/dL AST (14-36) U/L ALT (9-52) U/L Alkaline Phosphatase (38-126) U/L Total Creatine Kinase (30-135) U/L CK-MB (CK-2) (0.0-2.4) ng/mL CK-MB (CK-2) Rel Index Troponin I (0.000-0.034) ng/mL Total Protein (6.3-8.2) g/dL Albumin (3.5-5.0) g/dL - EKG Data -: EKG Interpreted by Me (Atrial flutter 94 bpm QRS 90 QT/QTC of 380/475 left exodeviation poor R-wav) - Radiology Data Radiology results: report reviewed (X-ray show evidence of GERD known pulmonary lesion. Some evidence of congestive failure with pleural effusions x-ray overall is unchanged from the previous), image reviewed Disposition Clinical Impression: Acute exacerbation of chronic obstructive airways disease, Lung cancer, Dehydration Disposition: ADMITTED IP TO THIS HOSP Condition: Stable
[2016-08-12] MEDS ORDERED: FLUTICASONE 50MCG/SPRAY NASAL 16GM EA NOSTRIL PRN (22:48)
[2016-08-13 00:11] VITALS: BMI 18.1
[2016-08-13] MEDS: IPRATROPIUM-ALBUTEROL 3 ML NEB INHALATION SCH ×8 (00:20→23:09)
[2016-08-13] MEDS: ALPRAZolam 0.25 MG TAB PO PRN ×2 (00:23→11:36)
[2016-08-13] MEDS: methylPREDNISolone SOD SUCCI 125 MG/2 ML VIAL IV SCH ×5 (04:12→23:04)
[2016-08-13] MEDS ORDERED: RALOXIFENE 60 MG TAB PO SCH (09:00)
[2016-08-13] MEDS: amLODIPine 10 MG TAB PO SCH (10:28)
[2016-08-13] MEDS: ATORVASTATIN 20 MG TAB PO SCH (10:29)
[2016-08-13] MEDS: ATENOLOL 25 MG TAB PO SCH (10:29)
[2016-08-13] MEDS: AMOXIC-POT CLAV 875-125MG 1 EACH TAB PO SCH ×2 (10:29→19:47)
[2016-08-13] MEDS: DRONABINOL 2.5 MG CAP PO SCH ×2 (10:29→19:53)
[2016-08-13] MEDS: MELOXICAM 7.5 MG TAB PO SCH (10:29)
--- NOTE | 2016-08-13 11:23 | FL ---
Modified barium swallow. HISTORY: Dysphagia. Modified barium swallow was performed with the department of speech pathology. The patient was prese nted with various consistencies of barium. There is evidence for aspiration with thin liquid barium. Deep penetration with nectar thick barium. Full report is to follow from the department of speech pathology. Impression: Aspiration as noted.
[2016-08-13] MEDS ORDERED: RX INFO: IV CONTRAST WAS GIVEN 1 EACH MISC MISCELLANE PRN (11:56)
--- NOTE | 2016-08-13 13:57 | US ---
EXAMINATION TYPE: US venous doppler duplex LE BI DATE OF EXAM: 08/13/2016 1:48 PM COMPARISON: NONE CLINICAL HISTORY: DVT. Bilateral leg swelling SIDE PERFORMED: Bilateral TECHNIQUE: The lower extremity deep venous system is examined utilizing real time linear array sonog trent with graded compression, doppler sonography and color-flow sonography. VESSELS IMAGED: External Iliac Vein (EIV) Common Femoral Vein Deep Femoral Vein Greater Saphenous Vein * Femoral Vein Popliteal Vein Small Saphenous Vein * Proximal Calf Veins (* superficial vessels) Right Leg: Appears negative for DVT Left Leg: Appears negative for DVT IMPRESSION: 1. No diagnostic evidence of DVT.
--- NOTE | 2016-08-13 14:29 | CONS ---
DATE OF CONSULTATION: This an 81-year-old female who had a recent diagnosis of small cell lung cancer made by thoracentesis on the right side. She apparently recently had 850 mL removed from the right side. The cytology was positive for small cell cancer. Has not seen the oncologist as yet. Presented to come emergency room with complaints of sudden shortness of breath. She felt very weak. No fever, no chills. No cough. No phlegm production. In addition, she had new development of hoarseness. In my mind it questions whether or not she has a recurrent laryngeal nerve involvement from her cancer. Apparently also she had a swallow evaluation in which showed some evidence of aspiration. This may go along with this whole picture as well. She seems pretty weak. Just the other day her daughter was talking about how much better she was doing. The granddaughter would like oncology to see her while she is here in the hospital. Home medications include atenolol, Flonase nasal spray, Relafen, Evista, amlodipine, Lipitor, ear drops, Xarelto, Travatan eye drops, DuoNeb, and previous medications including Xanax, Augmentin and Marinol. ALLERGIES: VALIUM. Medical history includes atrial fibrillation, recent diagnosis of small cell lung cancer, COPD, CVA, hypertension, DJD, degenerative disc disease, and skin cancer. Also has a history of back surgery, joint replacement, has had shoulder surgery x3, colonoscopy, toe spurs and bilateral cataract surgery. She also has had some other orthopedic procedures. Social history is positive for previous tobacco use. Occupational history is noncontributory. Family history is positive for cancer. The rest of the history is not too remarkable. REVIEW OF SYSTEMS: CONSTITUTIONAL: Weakness. NEUROLOGIC: Negative. HEENT: Negative. CARDIOVASCULAR: Negative. PULMONARY: Shortness of breath. GI/: Negative. RHEUMATOLOGIC: Negative. ENDOCRINOLOGIC: Negative. DERMATOLOGIC: Negative. Current vital signs include temperature 96.6, heart rate 82, respiratory rate 18, blood pressure 127/68, mean 87, 4 liters saturation 95%. Appears in no acute distress. HEENT examination is grossly unremarkable. Mucous membranes are moist. No oral lesions. Neck is supple. Full range of motion. No adenopathy or thyromegaly. Cardiovascular examination reveals regular rhythm and rate. S1 is normal. No S3, S4 or murmur. Lungs reveal a few scattered rhonchi. Breath sounds are diminished. No crackles. Abdomen soft. Bowel sounds are heard. Extremities are intact. She has significant lower extremity edema, right greater than left. The right side is about 2+, the left side is about 1+. Both sides are pitting. The rest of the examination including skin examination is unremarkable. Neurological examination is nonfocal. Labs are reviewed. CBC is completely normal. Sodium 130, potassium 4.8, chloride 95, CO2 of 27. BUN and creatinine were 23 and 0.56. Lactic acid was 2.1, AST 61 and her albumin was 3.3. The sodium of 130 may beginning to SIADH from small cell lung cancer. Chest x-ray is reviewed. It shows fluid in the minor fissure and bilateral effusions right greater than left. Medications are reviewed. She has Xanax, Augmentin, Tenormin, atorvastatin, Marinol, Flonase nasal spray, updrafts with DuoNeb, eye drops, Mobic, Evista, Xarelto, Amlodipine, and Solu-Medrol. ASSESSMENT: 1. New diagnosis of small cell lung cancer made by thoracentesis from the right pleural space. 2. Chronic obstructive pulmonary disease. 3. Rule out bilateral lower extremity deep venous thrombosis. 4. Rule out pulmonary embolism. 5. Chronic obstructive pulmonary disease exacerbation. 6. History of atrial fibrillation. 7. History of cerebrovascular accident. 8. History of hypertension. 9. History of degenerative joint disease. PLAN: The patient will have a CT scan of the chest to rule out PE. Will also get Dopplers of the lower extremities to rule out DVT. We will have oncology see the patient. May have thoracic surgery see her should there be significant pleural effusion for Pleurx catheter placement. Medications are reviewed. Additional recommendations and suggestions are forthcoming. Prognosis is guarded. Will also have Dr. Olivia see the patient for direct laryngoscopy.
--- NOTE | 2016-08-13 14:44 | CT ---
CT CHEST FOR PULMONARY EMBOLISM. EXAMINATION TYPE: CT angio chest DATE OF EXAM: 08/13/2016 2:20 PM INDICATION: Increased shortness of breath CT DLP: 251.2 mGycm, Automated exposure control for dose reduction was used. CONTRAST: Patient injected with 100 mL of Omnipaque 350. COMPARISON: 08/03/2016 TECHNIQUE: CT of the chest is performed on a spiral scan at 2 mm thick sections. Study is performed with intravenous contrast timed for evaluation for pulmonary embolism. This will limit additional po rtions of the evaluation. 3-D MIP images reconstructed by the technologist are reviewed on the compu ter in the coronal and sagittal planes. FINDINGS: No persistent filling defects are evident to suggest an acute pulmonary embolism. No mediastinal or hilar adenopathy enlarged by CT criteria is evident. The ascending aorta diameter at the level of the main pulmonary artery is 3.4 cm. The main pulmonary artery diameter at the bifur cation is 2.6 cm. There is a large mass within the mediastinum. Borders are indistinct and extend from the superior med iastinum to the level of the aortopulmonic window surrounding the pulmonary artery on the right exten ding towards the infrahilar region. Moderate bilateral pleural effusions are present. Compressive atelectasis within the dependent portio ns of the lung bases bilaterally. A large mass is in the right middle lobe. Consolidation could be co nsidered. This was present 08/03/2016. Limited CT section through the upper abdomen are unremarkable. IMPRESSIONS: 1. No acute pulmonary embolism. 2. Mediastinal mass. 3. Right middle lobe mass. 4. Moderate bilateral pleural effusions. The left pleural effusion is increasing in size.
[2016-08-13] MEDS: HYDROcodone/APAP 5-325MG 1 EACH TAB PO PRN ×2 (15:27→22:51)
[2016-08-13] MEDS ORDERED: RIVAROXABAN 15 MG TAB PO SCH (17:30)
[2016-08-13] MEDS ORDERED: LATANOPROST 0.005% OPHTH DROPS 2.5 ML BTL RIGHT EYE SCH (21:00)
[2016-08-14] MEDS: ALPRAZolam 0.25 MG TAB PO PRN (00:15)
[2016-08-14] MEDS: IPRATROPIUM-ALBUTEROL 3 ML NEB INHALATION SCH ×3 (03:33→10:11)
[2016-08-14 04:31] VITALS: RESP 20; TEMP 98.2
[2016-08-14 04:32] VITALS: BP 125/50; PULSE 60
[2016-08-14] MEDS ORDERED: SCOPOLAMINE 1.5MG/72HR PATCH TRANSDERM PRN (04:59)
[2016-08-14] MEDS ORDERED: LORazepam 2 MG/ML SYRINGE IV PRN ×2 (04:59→10:41)
[2016-08-14] MEDS ORDERED: ACETAMINOPHEN SUPPOSITORY 650 MG SUPP RECTAL PRN (04:59)
[2016-08-14] MEDS ORDERED: ARTIFICIAL TEARS-HYPROMELLOSE DROPS 15 ML BTL BOTH EYES PRN (04:59)
[2016-08-14] MEDS ORDERED: MORPHINE SULFATE (100 MG/2 ML) 100 MG in SODIUM CHLORIDE 0.9% 100 ML IV SCH (05:00)
[2016-08-14] MEDS: methylPREDNISolone SOD SUCCI 125 MG/2 ML VIAL IV SCH (06:03)
--- NOTE | 2016-08-14 07:34 | HP ---
DATE OF ADMISSION: 08/12/2016 CHIEF COMPLAINT: Short of breath. HISTORY OF PRESENT ILLNESS: Mrs. Friedman is an 81-year-old female with a known history of COPD, atrial fibrillation, anticoagulation, hypertension, osteoarthritis and recently diagnosed small cell lung cancer, status post right-sided thoracentesis done on 08/06/2016. The patient supposed to follow with oncologist and before that, patient suddenly developed shortness of breath today which made her come back to the hospital. Patient was also having hoarseness of the voice and patient failed swallow evaluation. Today Barium swallow and patient was able to swallow previously about a week back. possibility of laryngeal ( ) with possible ( ) involvement is being considered at this time. Chest x-ray showed congestive heart failure with pleural effusions. Right middle lobe consolidation without change compared to yesterday. Chest x-ray overall is unchanged. CT angiogram of the chest was ordered and lower extremity duplex was ordered to rule out pulmonary embolism and deep venous thrombosis. The patient denies any fever, chills. No cough or sputum production. No nausea or vomiting, abdominal pain. Patient was started on honey thickened liquids. Patient granddaughter is at bedside. REVIEW OF SYSTEMS: CONSTITUTIONAL: No fever. No chills. RESPIRATORY: No cough or sputum production. CARDIOVASCULAR: No chest pain. No short of breath. ABDOMEN: No nausea, vomiting, abdominal pain. Complete review of systems could not be obtained from the patient. Past medical history includes: Coronary artery disease, multivessel, moderate to severe aortic stenosis, peripheral vascular disease, pulmonary hypertension secondary to valvular heart disease, chronic atrial fibrillation, on anticoagulation with Xarelto, osteoporosis, hypertension, COPD, history of cerebrovascular accident/transient ischemic attack. PAST MEDICAL HISTORY: Back surgery, joint replacement orthopedic surgery, thoracentesis, cancer spots removed from the face, toe spur removal, bilateral cataract surgery, bilateral shoulder surgery and colonoscopy. SOCIAL HISTORY: Patient is a former smoker; quit smoking in 1997, denied any alcohol use, denied any drugs or IVDU. FAMILY HISTORY: Sister has cancer. ALLERGIES: Diazepam. Home medication include: 1. Atenolol. 2. Fluticasone. 3. ( ). 4. ( ). 5. Amlodipine. 6. Atorvastatin. 7. ( ). 8. Rivaroxaban. 9. Travoprost. 10. Ipratropium. 11. Xanax. 12. Augmentin. 13. Marinol. PHYSICAL EXAMINATION: An 81 -year-old female lying in bed. Awake, alert, oriented, x3. Appears to be in no apparent distress. VITALS: Blood pressure is 125/88, pulse 102, respirations 20, temperature afebrile, pulse ox 98% on 4 L nasal cannula. HEENT: Atraumatic, normocephalic. Neck is supple. No JVD. CVS: S1, S2 heard. No murmurs, no gallop. LUNGS: Diffuse rhonchi positive. No wheezing. No crackles. Nonlabored breathing. ABDOMEN: Soft, nontender. Bowel sounds present. BOILER RIVETER: Awake, alert, oriented times three. Able to move all her extremities. EXTREMITIES: 1+ bilateral edema bilateral lower extremity pedal edema, bilaterally right greater than left, pitting type. No clubbing or cyanosis. PSYCHIATRIC: Cooperative, could not elicited completely. LABORATORY DATA: WBC 10.1, hemoglobin 12.6, platelets 286. Sodium 130, potassium 4.8, chloride 95, bicarb is 27. BUN 23, creatinine 0.56, troponin 0.012, albumin 3.3. Chest x-ray reviewed and lower extremity duplex negative for pulmonary embolism. CT angiogram is pending at this time. IMPRESSION: 1. Shortness of breath secondary to pleural effusion and underlying cancer. Rule out pulmonary embolism due to sudden onset of short of breath. 2. Dysphagia and hoarseness of the voice. 3. Recently diagnosed small cell lung cancer, status post thoracentesis and 850 mL fluid removal on 08/06/2016. 4. Multivessel coronary artery disease. 5. Chronic atrial fibrillation on anticoagulation with Xarelto. 6. Chronic obstructive pulmonary disease. 7. Hypertension. 8. Degenerative joint disease. 9. Osteoporosis. 10. Pulmonary hypertension secondary to valvular heart disease. 11. Peripheral vascular disease. 12. Hypovolemic hyponatremia due to poor oral intake. DISCUSSION AND PLAN: The patient will be continued on current medications and the home medications. CT angiogram showed no pulmonary embolism. Patient had various swallow evaluations done and patient was aspirating so diet has been changed to honey thickened liquids. Pulmonary is following this patient. Prognosis is guarded due to multiple medical problems and recently diagnosed small cell lung cancer which is metastatic. We will continue the symptomatic management and follow up closely. Further recommendations based on the clinical course.
[2016-08-14] MEDS: ATENOLOL 25 MG TAB PO SCH (11:53)
[2016-08-14] MEDS: AMOXIC-POT CLAV 875-125MG 1 EACH TAB PO SCH (11:53)
[2016-08-14] MEDS: MELOXICAM 7.5 MG TAB PO SCH (11:53)
[2016-08-14] MEDS: ATORVASTATIN 20 MG TAB PO SCH (11:53)
[2016-08-14] MEDS: DRONABINOL 2.5 MG CAP PO SCH (11:53)
[2016-08-14] MEDS: amLODIPine 10 MG TAB PO SCH (11:54)
--- NOTE | 2016-08-14 14:44 | PN ---
This patient is an 81-year-old female with a recent diagnosis of small-cell lung cancer made by thoracentesis on the right side. She was readmitted to the hospital and I saw yesterday in consultation. The patient has now decided to go hospice. They called me this morning at 4:00 to ask me if it was okay if they put the hospice order in. I said absolutely. Anyway, we did spent some time with her today at the bedside. I was sitting next to her. Dr. Hammond saw her with me. She was just on some oxygen and morphine. We are going to add a scopolamine patch and some IV Ativan. Discontinue all unnecessary medications. Anyway, she is doing poorly, declining quickly. Her CT scan showed widely metastatic small-cell cancer throughout her chest with significant bulky disease and compression of the pulmonary artery. Current vital signs include temperature 98.2, heart rate 60, respiratory rate 20, blood pressure 125/50, mean 75, 4-liter saturation 92%. Appears very weak. She is very hoarse, probably from vocal cord paralysis. HEENT examination is grossly unremarkable. NECK: Supple. Cardiovascular examination reveals regular rhythm and rate. Heart rate 60. S1, S2 normal. Lungs reveal diminished breath sounds throughout. A few scattered coarse rhonchi. Breath sounds are diminished. ABDOMEN: Soft. Bowel sounds are heard. Extremities are intact. Slight edema. Skin without rash. Neurologic examination is difficult to perform. No labs were done today. Medications are reviewed. Unnecessary medications were discontinued. CT scan from August 13 shows no acute pulmonary embolism, large mediastinal mass, right middle lung lobe mass, and moderate bilateral pleural effusions. ASSESSMENT: 1. 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 2. Chronic obstructive pulmonary disease. 3. Possible bilateral lower extremity deep venous thromboses, ruled out with negative Dopplers. 4. No evidence of pulmonary embolism. 5. Atrial fibrillation. 6. Cerebrovascular accident. 7. Hypertension. 8. Degenerative joint disease. PLAN: The patient was made hospice. We are going to add a scopolamine patch and some IV Ativan. Will discontinue all unnecessary medications. Additional recommendations and suggestions are forthcoming. Prognosis is obviously very poor.
--- NOTE | 2016-08-16 21:16 | CONS ---
DATE OF CONSULTATION: 08/13/2016. REASON FOR CONSULTATION: Aspiration. CONSULTING PHYSICIAN: Dr. Marty Olivia. HISTORY OF PRESENT ILLNESS: This patient is a very pleasant 81-year-old female who is well-known to my office who was recently admitted to [facility] via the [facility] emergency for treatment of shortness of breath. The patient has a known diagnosis of small cell carcinoma of the right lung and apparently is undergoing treatment. She has recently been experiencing progressive problems with aspiration and had even on at least one occasion developed aspiration pneumonia. In addition to this, she unfortunately has recurrent pleural effusions requiring thoracentesis of the right chest. Her family states that was recently discharged and at that time had been treated for pleural effusion and pneumonia and within a few days after her discharge began experiencing progressive shortness of breath. She was returned to the emergency room where after evaluation including chest x-ray by the emergency room physicians, it was determined that she would require a readmission. The family states that she has been by bothered with aspirating almost all liquids especially thin liquids and while eating. That is to say she has difficulty drinking food such as water, milk, soda, coffee, etc. She does not have an issue with eating solid foods with respect aspirating or coughing or choking. A recent barium swallow was performed in the hospital and it demonstrated joel aspiration of the barium material. The patient's family states that the patient's voice has been quite raspy, hoarse and weak. In addition to this, the patient suffers from having extremely poor appetite and has been constantly losing weight. She is a nonsmoker and has not smoked for at least 40 to 45 years and has not used any type of tobacco products. She denies any referred otalgia, cough, or any pain on swallowing. Past medical history reveals that the patient has a known ALLERGY TO DIAZEPAM (VALIUM). Current medications include: 1. Albuterol nebulizer. 2. Lipitor. 3. Evista. 4. Flonase. 5. Atenolol. 6. Relafen. 7. Marinol. 8. Travatan ophthalmic. 9. Xarelto. There is a history of hypertension and COPD, but there is no history of diabetes mellitus. REVIEW OF SYSTEMS: The cardiovascular system is positive for hypertension. Respiratory system is positive for COPD/emphysema, metabolic/endocrine system is positive for hypercholesterolemia. The musculoskeletal system is positive for osteoarthritis. Remainder of review of systems is unremarkable. PHYSICAL EXAMINATION: This patient is a very pleasant, alert and oriented female with obviously known nourished and underweight. HEENT EXAMINATION: Patient is normocephalic. Tympanic membranes are normal. Middle ear spaces are free of any fluid or infection. Pupils equal, round, reactive light and accommodation. Extraocular movements are within normal limits. Intranasal examination reveals moderate septal deviation with compensatory hypertrophy of the inferior turbinates and a moderate amount of mucus on mucous membranes drained down the posterior pharynx. Examination of oropharynx reveals patient wears upper dentures and there are no suspicious lesions of the oropharynx, palpation of the neck is negative for any neck masses or lymphadenopathy. Cranial nerves II through XII and remainder of the head and neck exam are all within normal limits. Chest/cardiovascular: Both lung hill are clear to percussion and auscultation although the lungs sounds are quite distant. Patient is in regular sinus rhythm. S1 and S2 are present without any murmurs, S3s or S4s. The remainder of physical examination was not performed at this time. IMPRESSION: Aspiration, etiology possibly due to the repeated build-up of fluid in the right thorax, or possibly due to the patient's extreme weakness overall. Less likely would be a pathology such as paralysis of one of the true vocal cords. Even less likely would be evidence of a metastatic lesion from the lung to the neck. PLAN: Recommend speech pathology, evaluate this patient and advise with regards to the type of diet that would be most appropriate for her. I gave the family very basic suggestion such as having her take small bites, avoid thin liquids, and clear her throat after swallowing most solid food stuffs in an effort to avoid having any food particles lodged in her pharynx which might later fall into her trachea. In addition to this, I have ordered a video stroboscopy to evaluate the status of the vocal cords. Unfortunately, because of the patient's extreme weakness and because of her position in a hospital bed, I am not able to examine the vocal cords in the patient's hospital room. However, the videostroboscopy will give an excellent view of the vocal cords and their functioning and whether or not they are functioning in the proper manner. I want to take thank you for allowing me to assist you in the care of this wonderful patient. If I can be of any further assistance, please feel free to call my office. I will continue to follow her with you as long as she is in the hospital. ADDENDUM: I was informed by the nursing staff caring for this patient that the family had elected to have the videostroboscopy canceled because they decided that they would take the patient home and enter her into hospice care. I completely concur with this decision.
--- NOTE | 2016-08-18 17:21 | DS ---
DATE OF ADMISSION: 08/12/2016 DATE OF DISCHARGE: 08/14/2016 DISCHARGE DIAGNOSES: 1. Metastatic small-cell lung cancer, status post thoracentesis and fluid removal on 08/06/16. 2. Shortness of breath secondary to pleural effusion; ruled out pulmonary embolism. 3. Dysphagia and failed swallow evaluation, and hoarseness. 4. Multi-vessel coronary artery disease. 5. Chronic atrial fibrillation, on anticoagulation with Xarelto. 6. Chronic obstructive pulmonary disease. 7. Hypertension. 8. Degenerative joint disease. 9. Osteoporosis. 10. Pulmonary hypertension secondary to valvular heart disease. 11. Peripheral vascular disease. 12. Hypovolemia hyponatremia due to poor oral intake. 13. moderate Protein calorie Malnutrition HOSPITAL COURSE: Ms. Friedman is an 81-year-old female with recently diagnosed small-cell lung cancer, metastatic. She was admitted to the hospital with difficulty breathing, sudden onset. Patient had lower extremity duplex and CT scan of the chest was done to rule out any PE. Otherwise, patient failed swallow evaluation. Due to underlying multiple medical problems and comorbid conditions, family ( ) HOSPICE CARE AND COMFORT MEASURES ONLY. Patient was seen by Pulmonary; arranging for hospice care at home. Prognosis poor due to metastatic lung cancer. Patient was discharged home on hospice care. DISCHARGE PHYSICAL EXAMINATION: Lxafvk-rvewo-gbon-old female lying in the bed. Awake, alert, oriented x3. Appears to be in no distress. VITALS: Blood pressure is 125/50, pulse 60,respirations 20, temperature afebrile, pulse ox 92% on 4 L nasal cannula. LABORATORY DATA: Reviewed. Discharge physical examination done. Discharge medications include: 1. Artificial Tears. 2. Eye drops. 3. Marinol 2.5 mg p.o. b.i.d. 4. Scopolamine patch. 5. Morphine drip as directed. Home with hospice care. liquid diet as tolerated. Time taken more than 35 minutes, including 18 minutes counseling the patient and coordinating care. [facility]
--- NOTE | 2016-08-24 15:15 | CDI ---
In responding to this query, please exercise your independent professional judgment. The [facility] Coding Staff and Clinical Documentation Specialists appreciate your assistance in clarifying documentation, maintaining compliance with coding guidelines, accurately documenting patients condition and capturing severity of illness. The fact that a question is asked does not imply that any particular answer is desired or expected. Communication forms are a method of clarifying documentation and are not made part of the Legal Health Record. Thank you in advance for your clarification. Last Revision, February 2015 Efra Escalante [address] [address] Documentation Clarification Form Date: 08/24/2016 3:02:00 PM From: Jossy Walker, [facility] & Ashly Shay, Radiology Services Manager & Ashly = [phone] Admit Date: 08/12/2016 10:46:00 PM Patient Name: Jose Friedman Visit Number: [id number] Discharge Date: 08-14-16 Dr. La Araujo: Patient described as underweight by Dr. Marty Olivia on 08-13-16. Please see below for determination if patient meets definition for malnutrition and to what degree. History/Risk Factors: Right Lung cancer with mets to chest, pleural effusion, hypovolemia, hyponatremia, history of smoker, COPD, history of stroke, GERD, chronic atrial fib, CAD, pulmonary HTN, hoarseness. Patient become Palliative Care and discharged home with Hospice. Labs: Albumin = 3.3 on 08-12-16. Total Protein = 6.7 on 08-12-16. Current BMI: 18.1 Treatment: Ensure TID. Dietary Consult: Yes, on 08-13-16. Dietary states, dysphagia, on Marinol, "underweight", 90% of ideal body weight, decreased intake and weight loss for two months. (10#). In your professional opinion, can you please clarify if these findings signify one of the following conditions? Mild Protein Malnutrition Mild Protein-Calorie Malnutrition Moderate Protein Malnutrition Moderate Protein-Calorie Malnutrition Severe Protein Malnutrition Severe Protein-Calorie Malnutrition Malnutrition following GI surgery Malnutrition Other condition, please specify Unable to determine Please document in your progress notes and discharge summary in order to capture severity of illness and risk of mortality. Include clinical findings that support your diagnosis. FYI: Press F11 to launch patient chart. Place X here if this finding has no clinical significance, is not applicable or if you are not able to provide any additional documentation. MTDD
--- NOTE | 2016-08-28 11:15 | CDI ---
In responding to this query, please exercise your independent professional judgment. The [facility] Coding Staff and Clinical Documentation Specialists appreciate your assistance in clarifying documentation, maintaining compliance with coding guidelines, accurately documenting patients condition and capturing severity of illness. The fact that a question is asked does not imply that any particular answer is desired or expected. Communication forms are a method of clarifying documentation and are not made part of the Legal Health Record. Thank you in advance for your clarification. Last Revision, February 2015 Efra Escalante [address] [place] [address] Documentation Clarification Form Date: 08/28/2016 11:06:00 AM From: Jossy Walker, [facility] & Ashly Shay, Restuarant Crew Worker & Ashly = [phone] Admit Date: 08/12/2016 10:46:00 PM Patient Name: Jose Friedman Visit Number: [id number] Discharge Date: 08-14-16 Dr. La Araujo Patient described as underweight by Dr. Marty Olivia on 08-13-16. Please see below for determination if patient meets definition for malnutrition and to what degree. History/Risk Factors: Right Lung cancer with mets to chest, pleural effusion, hypovolemia, hyponatremia, history of smoker, COPD, history of stroke, GERD, chronic atrial fib, CAD, pulmonary HTN, hoarseness. Patient become Palliative Care and discharged home with Hospice. Labs: Albumin = 3.3 on 08-12-16. Total Protein = 6.7 on 08-12-16. Current BMI: 18.1 Treatment: Ensure TID. Dietary Consult: Yes, on 08-13-16. Dietary states, dysphagia, on Marinol, "underweight", 90% of ideal body weight, decreased intake and weight loss for two months. (10#). In your professional opinion, can you please clarify if these findings signify one of the following conditions? Mild Protein Malnutrition Mild Protein-Calorie Malnutrition Moderate Protein Malnutrition Moderate Protein-Calorie Malnutrition Severe Protein Malnutrition Severe Protein-Calorie Malnutrition Malnutrition following GI surgery Malnutrition Other condition, please specify Unable to determine Please document in your progress notes and discharge summary in order to capture severity of illness and risk of mortality. Include clinical findings that support your diagnosis. FYI: Press F11 to launch patient chart. Place X here if this finding has no clinical significance, is not applicable or if you are not able to provide any additional documentation. MTDD
== END 2016-08-14 16:00 | disposition hospice, home (50) | DRG 181 ==
LOC: EC 19:41 → 5ONC 22:46
PROVIDERS: ADMIT Hospitalist; ATTEND Hospitalist
PROC: 0T9B70Z Drainage of Bladder with Drainage Device, Via Natural or Artificial Opening (ICD-10-PCS; principal; 2016-08-14)
DX: C34.2 Malignant neoplasm of middle lobe, bronchus or lung (principal); E87.1 Hypo-osmolality and hyponatremia; C79.9 Secondary malignant neoplasm of unspecified site; E44.0 Moderate protein-calorie malnutrition; I11.0 Hypertensive heart disease with heart failure; I48.92 Unspecified atrial flutter; I27.2 Other secondary pulmonary hypertension; I50.9 Heart failure, unspecified; J44.1 Chronic obstructive pulmonary disease with (acute) exacerbation; Z68.1 Body mass index [BMI] 19.9 or less, adult; I48.2 Chronic atrial fibrillation; R13.10 Dysphagia, unspecified; Z66 Do not resuscitate; Z51.5 Encounter for palliative care; I35.0 Nonrheumatic aortic (valve) stenosis; E86.1 Hypovolemia; I25.10 Atherosclerotic heart disease of native coronary artery without angina pectoris; I73.9 Peripheral vascular disease, unspecified; R49.0 Dysphonia; R53.1 Weakness; E86.0 Dehydration; K21.9 Gastro-esophageal reflux disease without esophagitis; E78.00 Pure hypercholesterolemia, unspecified; J34.3 Hypertrophy of nasal turbinates; J34.2 Deviated nasal septum; J38.00 Paralysis of vocal cords and larynx, unspecified; M81.0 Age-related osteoporosis without current pathological fracture; M19.90 Unspecified osteoarthritis, unspecified site; Z87.891 Personal history of nicotine dependence; Z80.9 Family history of malignant neoplasm, unspecified; Z79.01 Long term (current) use of anticoagulants; Z86.73 Personal history of transient ischemic attack (TIA), and cerebral infarction without residual deficits; Z88.8 Allergy status to other drugs, medicaments and biological substances; Z85.828 Personal history of other malignant neoplasm of skin; Z87.01 Personal history of pneumonia (recurrent); Z96.641 Presence of right artificial hip joint; Z71.3 Dietary counseling and surveillance; Z98.42 Cataract extraction status, left eye; Z98.41 Cataract extraction status, right eye; Z79.810 Long term (current) use of selective estrogen receptor modulators (SERMs); Z79.1 Long term (current) use of non-steroidal anti-inflammatories (NSAID); Z79.51 Long term (current) use of inhaled steroids; Z79.899 Other long term (current) drug therapy; Z79.2 Long term (current) use of antibiotics; Z98.890 Other specified postprocedural states
CPT/HCPCS: 36415; 71020; 71275; 74230; 80053; 82550; 82553; 83605; 83735; 84484; 85025; 93005; 93970; 94640; 94760; 96360; 96361; 99285